=== PATIENT | female | born 2000 | race Caucasian/White ===

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

== ENCOUNTER 2021-05-31 18:54 | Emergency (ER) | payer MEDICAID, SELFPAY ==
[2021-05-31 18:56] VITALS: BP 150/89; PULSE 113; RESP 14; TEMP 36.2; O2SAT 100
[2021-05-31 19:44] LABS: Add Urine Microscopic? YES; Appearance Urine Cloudy (Clear); Bacteria Urine Trace /hpf; Bilirubin Urine Negative (Negative); Blood Urine Negative (Negative); Color Urine Yellow (Yellow); Glucose Urine UA Negative (Negative); Ketones Urine Negative (Negative); Leukocyte Esterase Ur 1+ LEU/UL (Negative); Mucus Urine Rare /lpf; Nitrate Urine Negative (Negative); Protein Urine Negative (Negative); Specific Grav Ur 1.015 (1.001-1.035); Squamous Epithelial Cell Urine Many /hpf (Few)
--- NOTE | 2021-05-31 19:52 | ED.FEMALEGU ---
HPI - Female Genitourinary General Chief complaint: Urogenital-Female Stated complaint: UTI Time Seen by Provider: 05/31/21 19:17 History of Present Illness HPI Narrative: Patient is a 20-year-old female who presents ER with concern for UTI. She had a UTI 3 weeks ago but did not finish her antibiotics. She is unsure the name of them. She reports that she started having some nausea so she stopped taking them. She then developed some gastroenteritis in the last week that finished up yesterday. She is having some suprapubic discomfort and pressure is associated with frequent urination and feeling of incomplete emptying. No dysuria. No vaginal discharge or bleeding. No fevers chills or sweats. Related Data Allergies Allergy/AdvReac Type Severity Reaction Status Date / Time No Known Allergies Allergy Verified 11/29/20 13:38 Review of Systems Gastrointestinal: Gastrointestinal: Denies abdominal pain, Reports diarrhea, Denies nausea and Denies vomiting Genitourinary: Genitourinary: Denies abnormal vaginal bleeding, Denies hematuria, Reports nocturia, Denies dysuria, Denies pelvic pain, Denies urinary incontinence and Denies vaginal discharge [facility] Past Medical History Medical History (Updated 05/31/21 @ 19:52 by Rogerio Villarreal MD) Anxiety Depression PCOS (polycystic ovarian syndrome) Social History Social History (Updated 11/29/20 @ 16:38 by Jay Garcia PA-C) Smoking status: Never smoker Exam Narrative: GENERAL: Well-appearing, well-nourished, and in no acute distress. HEAD: Normocephalic, atraumatic. ABDOMEN: Soft, nontender, nondistended. EXTREMITIES: Normal range of motion. No edema. NEURO: Alert and oriented x3. PSYCH: Normal mood and affect. Course Course Emergency Course: Informed of results. D/c home macrobid. Vital Signs Vital signs: Vital Signs Temperature 97.2 F L 05/31/21 18:56 Pulse Rate 113 H 05/31/21 18:56 Respiratory Rate 14 05/31/21 18:56 Blood Pressure 150/89 H 05/31/21 18:56 Pulse Oximetry 100 05/31/21 18:56 Temperature 97.2 F L 05/31/21 18:56 Pulse Rate 113 H 05/31/21 18:56 Respiratory Rate 14 03/10/22 18:56 Blood Pressure 150/89 H 05/31/21 18:56 Pulse Oximetry 100 05/31/21 18:56 MDM - Female Genitourinary Lab Data Labs: Lab Results 05/31/21 Range/Units 19:34 Urine Color Yellow (Yellow) Urine Appearance Cloudy H (Clear) Urine pH 8.0 (5.0-9.0) Ur Specific [place] 1.015 (1.001-1.035) Urine Protein Negative (Negative) mg/dL Urine Glucose (UA) Negative (Negative) mg/dL Urine Ketones Negative (Negative) mg/dL Ur Blood (Man) Negative (Negative) Urine Nitrate Negative (Negative) Urine Bilirubin Negative (Negative) Urine Urobilinogen 4.0 H (<2.0) mg/dL Leukocyte Esterase Rfl 1+ H (Negative) JACQUI/UL Urine RBC 3-5 H (0-2) /hpf Urine WBC 10-15 H /hpf Ur Squamous Epith Cells Many H (Few) /hpf Urine Bacteria Trace /hpf Urine Mucus Rare /lpf UCG Bedside Result Negative Reference Range: Negative Discharge Plan Discharge Clinical Impression: Urinary tract infection Patient Disposition: Home, Self-Care Condition: Stable Instructions: Urinary Tract Infection in Women (ED) Additional Instructions: Take the full course of antibiotics. Return the ER if you have fever 100.4 ?F, you cannot keep down food or water, you lose consciousness, you have additional concerns. Prescriptions: New nitrofurantoin monohyd/m-cryst [Macrobid] 100 mg capsule 100 mg PO Q12H 5 Days Qty: 10 RF: 0 No Action ibuprofen [IBU] 600 mg tablet 600 mg PO QID PRN (Reason: fever or pain) Qty: 7 RF: 0 famotidine [Pepcid] 20 mg tablet 20 mg PO BID Qty: 14 RF: 0 ondansetron 4 mg tablet,disintegrating 4 mg PO Q8H PRN (Reason: nausea and vomiting) Qty: 7 RF: 0 Follow-up/Referrals: Matthew Samuels MD [Physician]
== END 2021-05-31 20:08 | disposition home or self-care (01) ==
PROVIDERS: Emergency Provider Emergency Medicine
DX: N39.0 Urinary tract infection, site not specified (principal); E28.2 Polycystic ovarian syndrome
CPT/HCPCS: 81001; 81025; 87086; 87088; 99283

== ENCOUNTER 2021-12-10 19:40 | Emergency (ER) | payer OTHER, SELFPAY ==
--- NOTE | ~2021-12-10 | CT_ITS ---
EXAMINATION: CT abdomen pelvis w con DATE: 12/10/2021 22:56 INDICATION: rlq pain/r flank pain, n/v TECHNIQUE: Computed tomography (CT) of the abdomen and pelvis was performed with 100 mL Omnipaque-350 intravenous contrast. Automated exposure control and iterative reconstruction technique were employe d. The dose-length product was 1205.50 mGy-cm. COMPARISON: 11/29/2020. FINDINGS: Lower thorax: Unremarkable Liver: Normal. Biliary/Gallbladder: Gallbladder is partially collapsed. No bile duct dilation. Pancreas: No mass or duct dilation. Spleen: Normal. Adrenals:No mass. Kidneys: No mass, stone, or hydronephrosis. GI tract: No small or large bowel dilation. Normal appendix. Mesentery/Peritoneum: No ascites, mass, or free air. Retroperitoneum: No mass. Pelvis: Pelvic organs are within normal limits. NuvaRing in the vaginal cuff. Soft Tissues: Soft tissues and body wall unremarkable. Bones: No acute osseous finding. IMPRESSION: No acute abdominopelvic process detected. Reviewed, dictated and finalized at location K.
[2021-12-10 19:51] VITALS: BP 137/78; PULSE 113; RESP 18; TEMP 37.2; O2SAT 100
[2021-12-10 21:02] LABS: Hematocrit 40.9 % (37.0-47.0); Mean Corpuscular HGB Conc 34.2 g/dl (32-36); Mean Corpuscular Volume 87.8 fl (80-100); Mean Platelet Volume 10.6 fl (7.4-10.4); Platelet Count Result 383 k/mm3 (150-375); Red Blood Count 4.66 M/mm3 (4.2-5.4); Red Cell Distribution Width 12.7 % (11.5-14.5); White Blood Count 15.4 K/mm3 (4.5-10.0)
[2021-12-10 21:04] LABS: Appearance Urine Clear (Clear); Bilirubin Urine Negative (Negative); Blood Urine Negative (Negative); Color Urine Yellow (Yellow); Glucose Urine UA Negative (Negative); Ketones Urine Negative (Negative); Leukocyte Esterase Ur Negative LEU/UL (Negative); Nitrate Urine Negative (Negative); Protein Urine Negative (Negative); Urobilinogen Urine 0.2 mg/dL (<2.0)
[2021-12-10 21:11] LABS: Bacteria Urine Trace /hpf; Mucus Urine Rare /lpf; RBC Urine 0-2 /hpf (0-2); Squamous Epithelial Cell Urine Moderate /hpf (Few)
[2021-12-10 21:14] LABS: Alanine Aminotransferase 18 U/L (6-35); Albumin Level 4.5 g/dL (3.5-5.1); Alkaline Phosphatase 79 U/L (38-126); Anion Gap 13 mmol/L (8-16); Aspartate Amino Transferase 18 U/L (14-36); Bilirubin,Total 0.4 mg/dL (0.2-1.3); Blood Urea Nitrogen 10 mg/dL (7-17); Carbon Dioxide 25 mmol/L (22-30); Chloride 102 mmol/L (98-107); Estimated CRCL calculation 112 ml/min; Estimated Glomerular Filt Rate > 60; Glucose 121 mg/dL (65-110); Lipase 39 U/L (23-300); Potassium 3.2 mmol/L (3.4-5.0); Sodium 140 mmol/L (137-145)
[2021-12-10 21:35] LABS: Atypical Lymphocytes Present; Lymphocytes Absolute Manual 8.62 K/mm3 (1.1-4.5); Metamyelocytes Percent 2 %; Monocytes Absolute Manual 0.46 K/mm3 (0.1-0.90); Monocytes Percent Manual 3 % (3-9); Neutrophils Percent Manual 39 % (46-73); Platelet Estimate Adequate (Adequate); Total Cells Counted 100
[2021-12-10 21:58] LABS: Add Urine Microscopic? NO
--- NOTE | 2021-12-10 22:11 | ED.ABDPAIN ---
HPI - Abdominal Pain General Chief Complaint: Abdominal Pain Stated Complaint: gallbladder issues Time Seen by Provider: 12/10/21 22:01 History of Present Illness HPI narrative: Patient is a 21-year-old female here for evaluation of right lower quadrant abdominal pain, right flank pain, nausea and vomiting today. Patient states that she has a chronic cramping in her lower abdomen for the past month and a half but states that today got worse. She has not attempted any medication for her pain. She has had about 3 episodes of vomiting nonbloody/nonbilious emesis. No diarrhea, constipation, fevers or chills. No dysuria, urgency or frequency. She is being treated for a left-sided ear infection with azithromycin and states that her symptoms have improved slightly but the ear pain is present. Related Data Home Medications Medication Instructions Recorded Confirmed buspirone 10 mg tablet 10 mg PO TID 09/14/21 Allergies Allergy/AdvReac Type Severity Reaction Status Date / Time No Known Allergies Allergy Verified 12/10/21 22:19 Review of Systems Review of Systems: Gen: Denies fevers or chills Eyes: Denies eye pain or visual change ENT: Reports left ear pain. Denies congestion Respiratory: Denies shortness of breath or cough CV: denies chest pain or palpitations GI: Reports abdominal pain, nausea, vomiting. denies burning, urgency, frequency or hematuria Musculoskeletal: Denies back pain or muscle pain Neuro: Denies numbness, tingling, weakness or focal weakness Skin: Denies rash Except as documented, all other systems reviewed and negative PMFSH Past Medical History Medical History Anxiety Depression History of PCOS PCOS (polycystic ovarian syndrome) Family History Family History (Updated 09/14/21 @ 10:21 by Gunjan Ruelas MA) Mother Breast cancer Other Ovarian cancer Social History Social History (Updated 09/14/21 @ 10:21 by Gunjan Ruelas MA) Smoking status: Current some day smoker Tobacco type: e-cigarettes/vaping Alcohol intake: never Substance use: never Substance use type: does not use Gender identity (if verbalized by the patient): Female Sexual Orientation (if Verbalized by the Patient): Straight or Heterosexual Exam Narrative: APPEARANCE: Well appearing, no pain in distress, well-nourished. Head: Normocephalic and atraumatic. EYES: PERRLA/EOMI, conjunctivae clear NOSE: No nasal drainage EARS: Left TM is bulging. Right TM is clear. external ear normal in appearance THROAT: Oropharynx is clear. Mucous membranes are moist. NECK: Supple. No adenopathy, no masses. RESPIRATORY: Airway patent, respirations nonlabored. Clear to auscultation bilaterally, no rales, rhonchi, wheezing. CARDIOVASCULAR: Regular rate and rhythm without murmurs, rubs, or gallops. ABDOMINAL: Normoactive bowel sounds. Soft, nontender, nondistended. No rebound tenderness or guarding. MUSCULOSKELETAL: Extremities are warm and well-perfused. Moves all extremities well. No edema. NEURO: Normal speech. No focal neurologic deficits. SKIN: Skin is warm and dry. No rashes. PSYCHIATRIC: Normal affect/mood. Course Vital Signs Vital signs: Vital Signs Temperature 99.0 F 12/10/21 19:51 Pulse Rate 113 H 12/10/21 19:51 Respiratory Rate 18 12/10/21 19:51 Blood Pressure 137/78 12/10/21 19:51 Pulse Oximetry 100 12/10/21 19:51 Oxygen Delivery Room Air 12/10/21 19:51 Temperature 99.0 F 12/10/21 19:51 Pulse Rate 80 12/11/21 00:19 Respiratory Rate 18 12/11/21 00:19 Blood Pressure 129/59 L 12/11/21 00:19 Pulse Oximetry 100 12/11/21 00:19 Oxygen Delivery Room Air 12/10/21 19:51 MDM - Abdominal Pain MDM Narrative Medical decision making narrative: 21-year-old female here for evaluation of acute on chronic right lower quadrant abdominal pain and back pain for the past day. Here she is nontoxic-appearing,
[2021-12-10] MEDS: SODIUM CHLORIDE 0.9% IV 1,000 ML 999 ML IV CONT (22:20)
[2021-12-10] MEDS: FAMOTIDINE 20 MG/2 ML VIAL IV PUSH (22:20)
[2021-12-10] MEDS: KETOROLAC 15 MG/ML VIAL (*BKC) IV PUSH (22:20)
[2021-12-10] MEDS: ONDANSETRON INJ 4 MG/2 ML VIAL IV PUSH (22:21)
[2021-12-11 00:19] VITALS: BP 129/59; PULSE 80; RESP 18; O2SAT 100
== END 2021-12-11 00:16 | disposition home or self-care (01) ==
PROVIDERS: Emergency Medicine; Emergency Provider Emergency Medicine; PCP Nurse Practitioner Family
DX: R11.2 Nausea with vomiting, unspecified (principal); E28.2 Polycystic ovarian syndrome; F17.290 Nicotine dependence, other tobacco product, uncomplicated
CPT/HCPCS: 36415; 74177; 80053; 81003; 81025; 83690; 85025; 96361; 96374; 96375; 99284; J1885; J2405; J7030; Q9967

== ENCOUNTER 2021-12-12 09:21 | Emergency (ER) | payer OTHER, SELFPAY ==
--- NOTE | ~2021-12-12 | CT_ITS ---
EXAMINATION: CT abdomen pelvis w con DATE: 12/12/2021 10:49 INDICATION: Abdominal pain, nausea, vomiting, fever TECHNIQUE: Computed tomography (CT) of the abdomen and pelvis was performed with 100 CC Omnipaque 350 intravenous contrast. Automated exposure control and iterative reconstruction technique were employe d. Exam dose: 1246.64 mGy-cm total exam DLP. COMPARISON: 12/10/2021 CT abdomen pelvis FINDINGS: The lung bases are clear. Normal heart size. No pericardial or pleural effusion. The liver, gallbladder, bile ducts, pancreatic duct, pancreas and spleen appear normal. Normal morphology of the adrenal glands. No renal mass lesion or scarring urinary tract calculus or hydroureteronephrosis is detected. The uri nary bladder is unremarkable. Uterus and adnexal areas are normal. Normal caliber of the abdominal aorta. No intraperitoneal or retroperitoneal or pelvic mass lesion or adenopathy or ascites. Vaginal cuff device is noted. The urinary bladder, uterus and adnexal areas are unremarkable. Minimal colonic diverticulosis; no CT evidence of diverticulitis. Normal appendix. No bowel obstruction, bowel wall thickening, pneumatosis or intraperitoneal free air. Very small fat-containing umbilical hernia. IMPRESSION: Minimal colonic diverticulosis; no CT evidence of diverticulitis Normal appendix Reviewed, dictated and finalized at Location [facility]. Reviewed, dictated and finalized at location B.
[2021-12-12 09:29] VITALS: BP 141/71; PULSE 106; RESP 18; TEMP 37.1; O2SAT 100
--- NOTE | 2021-12-12 09:31 | ED.ABDPAIN ---
HPI - Abdominal Pain General Chief Complaint: Abdominal Pain Stated Complaint: n/v, abd pain Time Seen by Provider: 12/12/21 09:23 Source: RN notes reviewed History of Present Illness HPI narrative: Patient presents emergency department from home for abdominal pain. Patient states symptoms began 2 days ago. Pain is located across the upper abdomen and is described as a bandlike pressure feeling. States nothing makes the pain better or worse. States is associated with nausea and vomiting as well as a subjective fever states she has not take anything for the pain today patient states she was recently diagnosed with a left-sided ear infection she has not taken the antibiotics yet states she does have Zofran and P Protonix at home Related Data Home Medications Medication Instructions Recorded Confirmed buspirone 10 mg tablet 10 mg PO TID 09/14/21 Allergies Allergy/AdvReac Type Severity Reaction Status Date / Time No Known Allergies Allergy Verified 12/10/21 22:19 Review of Systems Review of Systems: Gen.: Denies fevers or chills ENT: Denies congestion Respiratory: Denies shortness of breath or cough CV: Denies chest pain or palpitations GI: See HPI Musculoskeletal: Denies back pain or muscle pain Neuro: Denies numbness, tingling, weakness or focal weakness Skin: Denies rash Except as documented, all other systems reviewed and negative [facility] Past Medical History Medical History Anxiety Depression History of PCOS PCOS (polycystic ovarian syndrome) Family History Family History (Updated 09/14/21 @ 10:21 by Gunjan Ruelas MA) Mother Breast cancer Other Ovarian cancer Social History Social History Smoking status: Current some day smoker Tobacco type: e-cigarettes/vaping Alcohol intake: never Substance use: never Substance use type: does not use Gender identity (if verbalized by the patient): Female Sexual Orientation (if Verbalized by the Patient): Straight or Heterosexual Exam Narrative: APPEARANCE: No acute distress, nontoxic, resting in bed HEENT: Normocephalic, atraumatic, OMM left TM is erythematous in nature the right TM is normal in appearance RESPIRATORY: No respiratory distress, clear to auscultation bilaterally with no rhonchi wheezing or rales CARDIOVASCULAR: RRR s murmur ABDOMINAL: Soft nondistended tender palpation epigastric and right upper quadrant left upper quadrant no tenderness in right lower quadrant left lower quadrant no rebound or guarding MUSCULOSKELETAl: Moves all extremities. No clubbing, cyanosis or edema. NEURO: Awake and alert. Following commands, speech normal, no focal deficits SKIN:: Warm, dry. Normal Color PSYCHIATRIC: Normal affect/mood Course Course Emergency Course: Patient states that they are feeling much better at this time. States abdominal pain has resolved. Repeat abdominal exam shows the patient's abdomen to be soft and nontender. Discussed with patient results of workup and diagnosis. Discussed need for follow-up with primary care physician, reasons to return to the emergency department in proper use of medication. Patient understands and agrees to current treatment plan. I discussed with patient need for follow-up with GI possible biliary colic in agreement at this time Vital Signs Vital signs: Vital Signs Temperature 98.7 F 12/12/21 09:29 Pulse Rate 106 H 12/12/21 09:29 Respiratory Rate 18 12/12/21 09:29 Blood Pressure 141/71 H 12/12/21 09:29 Pulse Oximetry 100 12/12/21 09:29 Oxygen Delivery Room Air 12/12/21 09:29 Temperature 98.7 F 12/12/21 09:29 Pulse Rate 71 12/12/21 12:27 Respiratory Rate 16 12/12/21 12:27 Blood Pressure 119/63 12/12/21 12:27 Pulse Oximetry 98 12/12/21 12:27 Oxygen Delivery Room Air 12/12/21 09:29 MDM - Abdominal Pain MDM Narrative Medical decision making
[2021-12-12] MEDS: KETOROLAC 30 MG/ML VIAL (*BKC) IV PUSH (09:56)
[2021-12-12] MEDS: SODIUM CHLORIDE 0.9% IV 1,000 ML 999 ML IV CONT (09:57)
[2021-12-12 10:08] LABS: Basophils Absolute Auto 0.2 K/mm3 (0.0-0.1); Basophils Percent Auto 1.4 % (0.2-1.2); Eosinophils Absolute Auto 0.1 K/mm3 (0-0.3); Eosinophils Percent Auto 1.3 % (0-4.4); Hematocrit 39.6 % (37.0-47.0); Hemoglobin 13.5 g/dL (12.0-15.0); Immature Granulocyte Absolute 0.02 K/mm3 (0.00-0.031); Immature Granulocyte Percent A 0.2 % (0-0.5); Lymphocytes Absolute Auto 4.56 K/mm3 (0.9-3.2); Lymphocytes Percent Auto 43.1 % (18.3-44.2); Mean Corpuscular HGB Conc 34.1 g/dl (32-36); Mean Platelet Volume 10.8 fl (7.4-10.4); Monocytes Absolute Auto 0.8 K/mm3 (0.1-0.6); Monocytes Percent Auto 7.7 % (2.6-8.5); Neutrophils Absolute Auto 4.9 K/mm3 (1.3-6.7); Neutrophils Percent Auto 46.3 % (45.5-73.1); Platelet Count Result 347 k/mm3 (150-375); Red Cell Distribution Width 12.6 % (11.5-14.5); White Blood Count 10.6 K/mm3 (4.5-10.0)
[2021-12-12 10:09] LABS: Appearance Urine Clear (Clear); Bilirubin Urine Negative (Negative); Color Urine Yellow (Yellow); Glucose Urine UA Negative (Negative); Ketones Urine Negative (Negative); Leukocyte Esterase Ur 1+ LEU/UL (Negative); Nitrate Urine Negative (Negative); Protein Urine Negative (Negative); Specific Grav Ur 1.015 (1.001-1.035); Urobilinogen Urine 0.2 mg/dL (<2.0)
[2021-12-12 10:20] LABS: Alanine Aminotransferase 17 U/L (6-35); Albumin Level 4.1 g/dL (3.5-5.1); Alkaline Phosphatase 82 U/L (38-126); Anion Gap 11 mmol/L (8-16); Aspartate Amino Transferase 16 U/L (14-36); Bilirubin,Total 0.3 mg/dL (0.2-1.3); Blood Urea Nitrogen 8 mg/dL (7-17); Carbon Dioxide 23 mmol/L (22-30); Chloride 106 mmol/L (98-107); Estimated CRCL calculation 111 ml/min; Estimated Glomerular Filt Rate > 60; Glucose 103 mg/dL (65-110); Lipase 57 U/L (23-300); Potassium 3.8 mmol/L (3.4-5.0); Sodium 140 mmol/L (137-145)
[2021-12-12 10:20] LABS: Bacteria Urine Trace /hpf; Mucus Urine Rare /lpf; RBC Urine 0-2 /hpf (0-2); Squamous Epithelial Cell Urine Few /hpf (Few); WBC Urine 0-3 /hpf
[2021-12-12 10:25] LABS: Add Urine Microscopic? YES; Blood Urine Trace-Intact (Negative)
[2021-12-12 12:27] VITALS: BP 119/63; PULSE 71; RESP 16; O2SAT 98
[2021-12-12] MEDS: NITROFURANTOIN MONOHYD MACROCR 100 MG CAP PO (12:52)
== END 2021-12-12 12:56 | disposition home or self-care (01) ==
PROVIDERS: Emergency Provider Emergency Medicine; PCP Nurse Practitioner Family
DX: N39.0 Urinary tract infection, site not specified (principal); R10.10 Upper abdominal pain, unspecified; F41.9 Anxiety disorder, unspecified; F32.A Depression, unspecified; E28.2 Polycystic ovarian syndrome; F17.290 Nicotine dependence, other tobacco product, uncomplicated
CPT/HCPCS: 36415; 74177; 80053; 81001; 81025; 83690; 85025; 96361; 96374; 99284; A9270; J1885; J7030; Q9967

== ENCOUNTER 2021-12-24 08:04 | Outpatient (CLI) | payer OTHER, SELFPAY ==
--- NOTE | ~2021-12-24 | NM_ITS ---
EXAMINATION: NM hepatobiliary w pharm DATE: 12/24/2021 10:16 INDICATION: Right upper quadrant abdominal pain. Nausea and vomiting. COMPARISON: Ultrasound 12/24/2021, CT abdomen and pelvis 12/12/2021 TECHNIQUE: 5.0 mCi Tc-99m mebrofenin (Choletec) was administered intravenously. Scintigraphic images of the abdomen were obtained for one hour. Then, 2.1 mcg sincalide (Kinevac) IV was administered, an d imaging was continued for 30 minutes. FINDINGS: There is normal clearance of radiotracer from the blood pool. There is homogeneous tracer u ptake by the liver. Activity progresses to the bowel and gallbladder. Gallbladder ejection fraction (GBEF) was 59%. Note that most patients with gallbladder dysfunction have GBEF < 35%, which overlaps with the broad normal range of 10-90%. IMPRESSION: 1. Normal hepatobiliary scintigraphy. Reviewed, dictated and finalized at location B.
--- NOTE | ~2021-12-24 | US_ITS ---
US abdomen complete EXAMINATION: US Abdomen Complete INDICATION: Right upper quadrant pain PROCEDURE: Realtime High Resolution abdomen ultrasound. COMPARISON: No prior studies for comparison FINDINGS: There is mild gallbladder wall thickening. No gallstones or pericholecystic fluid. Common bile duct measures 4 mm. Liver echotexture is increased, consistent with fatty infiltration.. Pancreas within normal limits. Pancreatic tail is obscured by bowel gas. Spleen is unremarkeable. Renal echotexture is within norm al limits bilaterally without hydronephrosis, contour deforming mass or renal stone. Right kidney cathy sures 11.9 cm. Left kidney measures 10.9 cm. Visualized aspects of the aorta and IVC are within normal limits. Portal vein is patent. No sonograph ic Hinton's sign indicated by the technologist. IMPRESSION: 1: Hepatic steatosis. 2: Mild gallbladder wall thickening. This could indicate interstitial edema, chronic liver disease o r chronic cholecystitis. Reviewed, dictated and finalized at location A. IMPRESSION: 1: Hepatic steatosis. 2: Mild gallbladder wall thickening. This could indicate interstitial edema, c hronic liver disease or chronic cholecystitis.
== END 2021-12-24 08:05 | disposition home or self-care (01) ==
PROVIDERS: PCP Nurse Practitioner Family; Visit Provider Nurse Practitioner Family
DX: R10.11 Right upper quadrant pain (principal); R11.2 Nausea with vomiting, unspecified; K76.0 Fatty (change of) liver, not elsewhere classified
CPT/HCPCS: 76700; 78227; A9537; J2805

== ENCOUNTER 2022-01-21 02:02 | Day surgery (SDC) | payer OTHER, SELFPAY ==
[2022-01-18 12:01] VITALS: BMI 42.0
--- NOTE | 2022-01-18 12:05 | PC.NURSE ---
Report to the Outpatient Waiting Room, entrance under the green pavilion located off [facility], at time 0600 on date 01/21/22. Planned Procedure Time: 0730. Time changes happen often and if your time is changed the preop area will call you the afternoon before. - You and your visitor will be asked to self-screen and do not enter if you have any COVID symptoms. - We encourage only one visitor and NO visitors under age 16 are allowed at this time. Your visitor will receive communication by the phone number that is given day of service. - The patient visitor is requested to social distance or may leave the building when not with patient due to restrictions. - A mask is OPTIONAL within the hospital. Patients may have clear liquids (water, carbonated beverages, clear teas, apple juice) until 3 hours prior to surgery with a maximum of 20 ounces. - No food from midnight until time of surgery Take the following medications with a SIP of water the morning of surgery: N/A Medications to discontinue per physician: N/A Date to take last dose: N/A Please no make-up, nail belarusian, hairspray, perfume, deodorant, or body powder the day of surgery. No jewelry (including any body piercings) or valuables the day of surgery, leave them at home. Please take a shower or bath the night before, or the morning of, surgery with an antibacterial soap (HIBICLENS). Wear comfortable, loose fitting clothing. - Jewelry must be removed prior to entering the operating room. Rings and piercings that are not removed may be cut off. - The hospital will not accept responsibility for valuables. - Please leave all valuables, including medications, at home the day of surgery. If you are going home after surgery, a licensed commercial trailer truck driver must drive you home. - NO public transportation without another adult. - We recommend that an adult stay with you for 24 hours following discharge. - We also recommend that you do not drive, make important decision, drink alcoholic beverages, or take any drugs that were not prescribed by your health care provider for at least 24 hours after your discharge time. Follow any additional instructions given to you from your surgeon. If you or anyone in your household have experienced Covid symptoms in the past week, please notify your surgeon or the nurse liaison at the phone number below for possible testing. Telephone instructions given to YOHAN GONZALES and asked if any additional questions and then verbalized understanding. Patient advised to call surgeon office or pre surgery nurse liaison [phone] if any additional questions.
[2022-01-21] VITALS (8 sets, daily range): BP systolic 125–162; BP diastolic 70–93; PULSE 83–109; RESP 18–34; TEMP 36.1–36.9; O2SAT 97–100
--- NOTE | 2022-01-21 07:03 | P.PNAN_ITS ---
Anes - Initial Pre Proc Eval Procedure: Operation Date: 01/21/22 07:30 Proposed Procedures p Laparoscopic Cholecystectomy - Giselle Pedro MD Date/Time: 01/21/22 07:03 Surgeon: Giselle Pedro MD Pre Op Diagnosis: chronic cholecystitis Patient Data Age: 21 Gender: F Height: 1.57 m Weight: 104.33 kg Allergies Allergy/AdvReac Type Severity Reaction Status Date / Time No Known Allergies Allergy Verified 01/18/22 12:00 Home Medications Medication Instructions Recorded Confirmed Type etonogestrel 0.12 mg-ethinyl 1 vag ring vaginal .see comment #3 09/14/21 01/18/22 Rx estradiol 0.015 mg/24 hr vaginal ea ring (NuvaRing) Patient hx anesthesia problems: none and other (motion sickness) Family hx anesthesia problems: none Results Review: All pre-operative results and documents have been reviewed as part of the pre- operative evaluation. [facility] Past Medical History Medical History Anxiety Depression Hepatic steatosis History of PCOS Nausea and vomiting Obese PCOS (polycystic ovarian syndrome) Right upper quadrant pain Family History Family History Mother Breast cancer Other Ovarian cancer Social History Social History Smoking status: Current every day smoker Tobacco type: e-cigarettes/vaping Alcohol intake: never Substance use: never Substance use type: does not use Living arrangements: with friend(s) Additional living arrangements comments: WITH BOYFRIEND Gender identity (if verbalized by the patient): Female Sexual Orientation (if Verbalized by the Patient): Straight or Heterosexual Anes - Eval Final PreProcedure Day of Procedure 01/21/22 07:03 Patient weight: morbidly obese Lungs: clear to auscultation Airway: Mallampati scale class II Neurological: alert and oriented Last oral intake: >/= 8 hours ASA classification: III Emergent: no Anesthetic plan: proceed Anesthesia type and monitoring: general ETT and standard monitoring Results Review: All pre-operative results and documents have been reviewed as part of the pre- operative evaluation. Informed Consent: The patient's anesthetic plan and its attendant risks and benefits were discussed with the patient/family/POA. Questions were solicited and answers provided to the satisfaction of the patient/family/POA.
[2022-01-21] MEDS: SCOPOLAMINE 1.5 MG PATCH TRANSDERM (07:14)
[2022-01-21] MEDS: ACETAMINOPHEN 500 MG TABLET 1000 MG PO (07:15)
[2022-01-21] MEDS: KETOROLAC 15 MG/ML VIAL (*BKC) IV PUSH (07:16)
--- NOTE | 2022-01-21 07:21 | WPDHPUPDATE1 ---
History and Physical Update Update Date/Time: 01/21/22 07:21 History and Physical has been reviewed, including an updated exam of the patient. There are NO changes in the patient's condition. Risks, benefits, and alternatives have been discussed and questions answered. Patient agrees to proceed with procedure.
[2022-01-21 07:24] LABS: Amylase 62 U/L (30-110)
[2022-01-21] MEDS: LACTATED RINGERS 1,000 ML 30 ML IV CONT ×2 (07:28→08:59)
[2022-01-21] MEDS: BUPIVACAINE/EPINEPHRINE 0.25% 50 ML VIAL 30 ML INFILTRATE (07:30)
[2022-01-21] MEDS: ceFAZolin 2 GM/D5W 50 ML 2 GM/50 ML BAG IVPB (07:30)
--- NOTE | 2022-01-21 08:28 | W.PM.PROC2 ---
Procedure Note - Detailed Date of Procedure 01/21/22 Pre-op Diagnosis chronic cholecystitis Post-op Diagnosis Same Procedure Performed Laparoscopic cholecystectomy Surgeon Giselle Pedro MD Anesthesia General Indications 21-year-old female presented to the office complaining of postprandial right upper quadrant abdominal pain associated with nausea and vomiting. Workup including imaging significant for chronic cholecystitis. Findings chronic cholecystitis Description of Procedure The patient was taken to the operating room placed in the supine position. After adequate induction of general anesthesia, the patient was prepped and draped in normal sterile fashion. A time-out was then performed to verify the patient's identity as well as the procedure being performed. I then made a 5 mm incision in the supraumbilical region. Through this, a Veress needle was placed into the peritoneal cavity and CO2 gas was then insufflated. After adequate pneumoperitoneum was achieved, the Veress needle was removed and a 5 mm optiview trocar was placed through this incision under direct visualization. I then placed the laparoscope through this trocar site and under direct visualization placed a further 12 mm subxiphoid port as well as 2 additional 5 mm ports in the right upper abdomen. The gallbladder was then identified and was noted to be moderately inflamed and distended. I was able to place a grasper at the dome of the gallbladder and this was retracted anterior and cephalad up over the liver. A 2nd retractor was then placed at the infundibulum and retracted laterally, this allowed visualization of the triangle of Calot. I then was able to visualize the cystic duct in its entirety from its proximal insertion into the gallbladder, to its distal junction with the common hepatic/common bile duct junction. At this point, I carefully skeletonized the proximal cystic duct with the [place] dissector. I then clipped and transected the proximal cystic duct. Next I visualized the cystic artery. Again the artery was skeletonized, clipped, and transected. I then used the Bovie cautery to take down the peritoneal attachments of the gallbladder off the liver bed. Once the gallbladder specimen was completely detached, an endo-pouch was placed through the 12 mm port site. I then placed the gallbladder specimen into the Endo pouch and removed the endo-pouch from the 12 mm port site. The specimen will now be sent to pathology for further review. I then copiously irrigated the right upper quadrant. Hemostasis was noted in the liver bed, the clips were noted to be in good position on both the cystic duct stump and the cystic artery stump. No other pathology was noted in the right upper quadrant. I then moved the laparoscope to the subxiphoid port. No iatrogenic injury or other pathology was noted in the lower abdomen. I then closed the 12 mm trocar site under direct visualization using the Lincoln cone and 0 Vicryl suture. At this point, the abdomen was desufflated and all ports removed. All port sites were then closed with 4.O Monocryl subcuticular sutures. Dermabond was placed on each incision. The patient tolerated the procedure well, was extubated in the operating room postoperative and will be transferred to the recovery room in stable condition Estimated Blood Loss 5 Drains No Packing No Pathology Yes Complications No immediate complications Condition Stable Disposition PACU [facility] Billing Surgery - Charge Forward: Surgery Billing
[2022-01-21] MEDS: fentaNYL CITRATE INJ (*CRX) 100 MCG/2 ML VIAL 25 MCG IV PUSH ×4 (08:33→09:07)
[2022-01-21] MEDS: oxyCODONE HCL (*CRX) 5 MG TAB IR PO (09:41)
== END 2022-01-21 10:27 | disposition home or self-care (01) ==
PROVIDERS: Visit Provider Surgery
PROC: 0FT44ZZ Resection of Gallbladder, Percutaneous Endoscopic Approach (ICD-10-PCS; CPT 47562; principal; 2022-01-21 07:30)
DX: K81.1 Chronic cholecystitis (principal); F17.290 Nicotine dependence, other tobacco product, uncomplicated; E66.01 Morbid (severe) obesity due to excess calories; Z68.41 Body mass index [BMI] 40.0-44.9, adult
CPT/HCPCS: 47562; 36415; 82150; 88304; A9270; J0690; J1100; J1200; J1885; J2250; J2405; J2704; J3010; J7030; J7120

== ENCOUNTER 2022-01-26 14:42 | Emergency (ER) | payer OTHER, SELFPAY ==
--- NOTE | ~2022-01-26 | XR_ITS ---
EXAMINATION: XR chest 2V Exam Date/Time: 01/26/2022 15:04 CDT HISTORY: cough Comparison: None available. RESULT: Lines, tubes, and devices: Cholecystectomy clips. Lungs and pleura: Clear. Cardiomediastinal silhouette: Stable. Other: No acute osseous or upper abdominal finding. IMPRESSION: No acute cardiopulmonary process. Reviewed, dictated and finalized at location K.
--- NOTE | ~2022-01-26 | CT_ITS ---
EXAMINATION: CTA chest PE protocol DATE: 01/26/2022 17:05 INDICATION: dyspnea post op TECHNIQUE: Computed tomography angiography (CTA) of the chest was performed with 100 mL Omnipaque-350 intravenous contrast timed to evaluate the pulmonary arteries. Coronal maximum intensity projection 3D-reconstructions were created by the technologist. The dose-length product (DLP) was 767.90 mGy-cm. Automated exposure control and iterative reconstruction technique were employed. COMPARISON: X-ray chest, same date. FINDINGS: Lung parenchyma and airways: Clear. Pleura: Unremarkable. Thoracic inlet, axillae and chest wall: Unremarkable. Thoracic aorta: Normal. Mediastinum: Normal. Heart and pericardium: Normal. Coronary artery calcifications: Absent. Upper abdomen: No significant finding. Bones: No acute osseous finding. Pulmonary arteries: Study quality: Slightly limited by beam hardening and motion but overall adequate . No pulmonary emboli detected. IMPRESSION: No CT evidence of acute pulmonary embolus. Reviewed, dictated and finalized at location K.
[2022-01-26 14:43] VITALS: BP 147/82; PULSE 107; RESP 16; TEMP 36.4; O2SAT 100
--- NOTE | 2022-01-26 15:09 | ECG_ITS ---
Measurements Intervals Gibson Rate: 85 P: 21 VA: 121 QRS: 9 QRSD: 85 T: 8 QT: 349 QTc: 417 Interpretive Statements SINUS RHYTHM DELAYED PRECORDIAL R/S TRANSITION BORDERLINE T WAVE ABNORMALITY- ANT/INF LEADS BASELINE ARTIFACT- I, II, V2 BORDERLINE ECG NO PREVIOUS ECG AVAILABLE FOR COMPARISON Electronically Signed On 01-26-2022 20:09:46 CDT by Joshua Reis D.O.
--- NOTE | 2022-01-26 15:09 | ED.GENADULT ---
HPI - General Adult General Chief complaint: Recheck/Abnormal Lab/Rx Stated complaint: coughing Time Seen by Provider: 01/26/22 14:48 Source: RN notes reviewed History of Present Illness HPI narrative: Patient presents emergency department from home for cough. Patient states she has had a cough for the past 5 days states that the cough has been nonproductive. States has been associated with a feeling of of hot and cold but she has not had a measured temperature. States at times she does have some midsternal chest tightness that happens in the morning when she wakes up and then is relieved after she gets up states that she is also been having some cramping throughout her abdomen. As well as in her lower back patient denies any rhinorrhea she states that she just had her gallbladder removed by Dr. Pedro 5 days ago states she has been using her incentive spirometer Related Data Allergies Allergy/AdvReac Type Severity Reaction Status Date / Time No Known Allergies Allergy Verified 01/21/22 07:42 Review of Systems Review of Systems: Gen.: Subjective feelings of hot and cold ENT: Denies congestion Respiratory: reports shortness of breath and cough CV: Denies chest pain or palpitations GI: Reports abdominal pain denies nausea vomiting or diarrhea Musculoskeletal: Denies back pain or muscle pain Neuro: Denies numbness, tingling, weakness or focal weakness Skin: Denies rash Except as documented, all other systems reviewed and negative [facility] Past Medical History Medical History Anxiety Depression Hepatic steatosis History of PCOS Nausea and vomiting Obese PCOS (polycystic ovarian syndrome) Right upper quadrant pain Family History Family History Mother Breast cancer Other Ovarian cancer Social History Social History Smoking status: Current every day smoker Tobacco type: e-cigarettes/vaping Alcohol intake: never Substance use: never Substance use type: does not use Additional living arrangements comments: WITH BOYFRIEND Gender identity (if verbalized by the patient): Female Sexual Orientation (if Verbalized by the Patient): Straight or Heterosexual Exam Narrative: APPEARANCE: No acute distress, nontoxic, resting in bed EYES: EOMI HEENT: Normocephalic, atraumatic, OMM RESPIRATORY: No respiratory distress Clear to auscultation bilaterally with no rhonchi wheezing or rales. CARDIOVASCULAR: Regular rate and rhythm without murmurs rubs or gallops. ABDOMINAL: Soft nondistended mild diffuse tender to palpation no rebound or guarding, no surgical abdomen present, patient with surgical scars present with no signs of infection MUSCULOSKELETAl: Moves all extremities. No clubbing, cyanosis or edema. NEURO: Awake and alert. Following commands, speech normal, no focal deficits SKIN:: Warm, dry. No rashes lesions or abrasions PSYCHIATRIC: Normal affect/mood, Course Course Emergency Course: Discussed with Dr. Rodriguez presentation work-up agrees with plan for discharge Discussed with patient results of workup and diagnosis. Discussed need for follow-up with primary care, proper use of medication, and reasons to return to the emergency department. Patient understands and agrees to current treatment plan Vital Signs Vital signs: Vital Signs Temperature 97.5 F L 01/26/22 14:43 Pulse Rate 107 H 01/26/22 14:43 Respiratory Rate 16 01/26/22 14:43 Blood Pressure 147/82 H 01/26/22 14:43 Pulse Oximetry 100 01/26/22 14:43 Temperature 97.5 F L 01/26/22 14:43 Pulse Rate 107 H 01/26/22 14:43 Respiratory Rate 16 01/26/22 14:43 Blood Pressure 147/82 H 01/26/22 14:43 Pulse Oximetry 100 01/26/22 14:43 Medical Decision Making [facility] Narrative Medical decision making narrative: Patient presents with feelings of dyspnea feeling hot
[2022-01-26 15:43] LABS: Basophils Absolute Auto 0.1 K/mm3 (0.0-0.1); Basophils Percent Auto 0.9 % (0.2-1.2); Eosinophils Absolute Auto 0.2 K/mm3 (0-0.3); Eosinophils Percent Auto 1.6 % (0-4.4); Hematocrit 37.1 % (37.0-47.0); Hemoglobin 12.5 g/dL (12.0-15.0); Immature Granulocyte Absolute 0.04 K/mm3 (0.00-0.031); Immature Granulocyte Percent A 0.3 % (0-0.5); Lymphocytes Absolute Auto 3.93 K/mm3 (0.9-3.2); Lymphocytes Percent Auto 33.4 % (18.3-44.2); Mean Corpuscular HGB Conc 33.7 g/dl (32-36); Mean Corpuscular Hemoglobin 29.7 pg (26-34); Mean Corpuscular Volume 88.1 fl (80-100); Mean Platelet Volume 10.5 fl (7.4-10.4); Monocytes Absolute Auto 0.5 K/mm3 (0.1-0.6); Monocytes Percent Auto 4.6 % (2.6-8.5); Neutrophils Percent Auto 59.2 % (45.5-73.1); Platelet Count Result 343 k/mm3 (150-375); Red Blood Count 4.21 M/mm3 (4.2-5.4); Red Cell Distribution Width 12.4 % (11.5-14.5); White Blood Count 11.8 K/mm3 (4.5-10.0)
[2022-01-26 15:46] LABS: Mucus Urine Moderate /lpf; Squamous Epithelial Cell Urine Many /hpf (Few); WBC Urine 16-20 /hpf
[2022-01-26 15:47] LABS: Add Urine Microscopic? YES; Appearance Urine Slightly Cloudy (Clear); Bilirubin Urine Negative (Negative); Blood Urine 3+ (Negative); Color Urine Yellow (Yellow); Glucose Urine UA Negative (Negative); Ketones Urine Trace mg/dL (Negative); Leukocyte Esterase Ur 1+ LEU/UL (Negative); Nitrate Urine Negative (Negative); Protein Urine Negative (Negative); Specific Grav Ur 1.025 (1.001-1.035); Urobilinogen Urine 0.2 mg/dL (<2.0)
[2022-01-26 15:53] LABS: Alanine Aminotransferase 16 U/L (6-35); Albumin Level 3.9 g/dL (3.5-5.1); Alkaline Phosphatase 95 U/L (38-126); Anion Gap 11 mmol/L (8-16); Aspartate Amino Transferase 15 U/L (14-36); Bilirubin,Total 0.4 mg/dL (0.2-1.3); Blood Urea Nitrogen 6 mg/dL (7-17); Calcium 8.7 mg/dL (8.4-10.2); Carbon Dioxide 22 mmol/L (22-30); Chloride 105 mmol/L (98-107); Estimated CRCL calculation 110 ml/min; Estimated Glomerular Filt Rate > 60; Glucose 160 mg/dL (65-110); Lipase 53 U/L (23-300); Potassium 3.8 mmol/L (3.4-5.0); Sodium 138 mmol/L (137-145)
[2022-01-26 16:04] LABS: Troponin I < 0.012 ng/mL (0.000-0.034)
[2022-01-26 16:19] LABS: Influenza A QL RT-PCR Negative (Negative); Influenza B QL RT-PCR Negative (Negative); SARS-CoV-2 RNA PCR Negative
[2022-01-26 16:43] LABS: Troponin I < 0.012 ng/mL (0.000-0.034)
[2022-01-26] MEDS: SODIUM CHLORIDE 0.9% IV 1,000 ML 999 ML IV CONT (16:44)
[2022-01-26 18:34] VITALS: BP 128/76; PULSE 75; TEMP 37.3; O2SAT 99
[2022-01-26] MEDS: CEPHALEXIN 500 MG CAPSULE PO (18:49)
== END 2022-01-26 18:54 | disposition home or self-care (01) ==
PROVIDERS: Emergency Provider Emergency Medicine
DX: N39.0 Urinary tract infection, site not specified (principal); R06.00 Dyspnea, unspecified; F17.209 Nicotine dependence, unspecified, with unspecified nicotine-induced disorders; Z20.822 Contact with and (suspected) exposure to COVID-19
CPT/HCPCS: 36415; 71046; 71275; 80053; 81001; 81025; 83690; 84484; 85025; 87086; 87088; 87636; 93005; 96360; 99284; A9270; J7030; Q9967

== ENCOUNTER 2022-05-07 09:41 | Emergency (ER) | payer OTHER, SELFPAY ==
[2022-05-07] VITALS (8 sets, daily range): BP systolic 103–150; BP diastolic 66–112; PULSE 81–124; RESP 18; TEMP 36.3–36.6; O2SAT 99–100
--- NOTE | ~2022-05-07 | CT_ITS ---
EXAMINATION: CT abdomen pelvis w con INDICATION: Abdominal pain and vomiting TECHNIQUE: Computed tomographic images of the abdomen and pelvis were obtained after the administrati on of 100 cc of Omnipaque 350 intravenous contrast. The dose-length product (DLP) was 1227.89 mGy-cm. Automated exposure control and iterative reconstruction technique were employed. COMPARISON: 12/12/2021 FINDINGS: The lung bases are clear. The heart size is normal. The liver is diffusely low in attenuati on when compared with the spleen, consistent with hepatic steatosis. The gallbladder is surgically ab sent. The spleen, pancreas, and adrenal glands are normal. The kidneys are unremarkable. No pathologi jhon enlarged abdominal or pelvic lymph nodes are identified. No free intraperitoneal gas or evidenc e of bowel obstruction. There is liquid stool in the colon to the level of the rectum, consistent wit h diarrhea. The appendix is normal IMPRESSION: 1. Liquid stool throughout the colon, consistent with diarrhea, likely enteritis. Reviewed, dictated and finalized at location L. [employer] IMPRESSION: 1. Liquid stool throughout the colon, consistent with diarrhea, likely enteriti s.
[2022-05-07 10:04] LABS: Basophils Absolute Auto 0.1 K/mm3 (0.0-0.1); Basophils Percent Auto 0.6 % (0.2-1.2); Eosinophils Absolute Auto 0.2 K/mm3 (0-0.3); Eosinophils Percent Auto 1.3 % (0-4.4); Hematocrit 42.3 % (37.0-47.0); Hemoglobin 14.7 g/dL (12.0-15.0); Immature Granulocyte Absolute 0.09 K/mm3 (0.00-0.031); Immature Granulocyte Percent A 0.5 % (0-0.5); Lymphocytes Percent Auto 12.8 % (18.3-44.2); Mean Corpuscular HGB Conc 34.8 g/dl (32-36); Mean Corpuscular Hemoglobin 29.8 pg (26-34); Mean Corpuscular Volume 85.6 fl (80-100); Mean Platelet Volume 10.7 fl (7.4-10.4); Monocytes Absolute Auto 1.3 K/mm3 (0.1-0.6); Monocytes Percent Auto 7.2 % (2.6-8.5); Neutrophils Absolute Auto 13.9 K/mm3 (1.3-6.7); Neutrophils Percent Auto 77.6 % (45.5-73.1); Platelet Count Result 366 k/mm3 (150-375); Red Blood Count 4.94 M/mm3 (4.2-5.4); Red Cell Distribution Width 13.3 % (11.5-14.5); White Blood Count 17.9 K/mm3 (4.5-10.0)
[2022-05-07 10:16] LABS: Alanine Aminotransferase 24 U/L (6-35); Albumin Level 4.4 g/dL (3.5-5.1); Alkaline Phosphatase 115 U/L (38-126); Anion Gap 9 mmol/L (8-16); Aspartate Amino Transferase 23 U/L (14-36); Bilirubin,Total 0.7 mg/dL (0.2-1.3); Blood Urea Nitrogen 10 mg/dL (7-17); Carbon Dioxide 22 mmol/L (22-30); Chloride 104 mmol/L (98-107); Estimated CRCL calculation 125 ml/min; Estimated Glomerular Filt Rate > 60; Glucose 144 mg/dL (65-110); Lipase 38 U/L (23-300); Potassium 4.2 mmol/L (3.4-5.0); Sodium 135 mmol/L (137-145)
[2022-05-07] MEDS: SODIUM CHLORIDE 0.9% IV 1,000 ML 999 ML IV CONT ×2 (11:51→14:30)
[2022-05-07] MEDS: ONDANSETRON INJ 4 MG/2 ML VIAL IV PUSH (11:53)
[2022-05-07] MEDS: FAMOTIDINE 20 MG/2 ML VIAL IV PUSH (11:53)
[2022-05-07 12:13] LABS: Appearance Urine Turbid (Clear); Bilirubin Urine 2+ (Negative); Blood Urine Negative (Negative); Color Urine Yellow (Yellow); Glucose Urine UA Negative (Negative); Ketones Urine 2+ mg/dL (Negative); Leukocyte Esterase Ur Trace LEU/UL (Negative); Nitrate Urine Negative (Negative); Protein Urine 1+ mg/dL (Negative); Specific Grav Ur >= 1.030 (1.001-1.035); Urobilinogen Urine 0.2 mg/dL (<2.0); pH Urine 5.5 (5.0-9.0)
[2022-05-07 12:18] LABS: Mucus Urine Heavy /lpf; RBC Urine 0-2 /hpf (0-2); Squamous Epithelial Cell Urine Many /hpf (Few)
[2022-05-07 12:29] LABS: Add Urine Microscopic? YES
--- NOTE | 2022-05-07 14:33 | ED.NAVMDI ---
HPI - Nausea/Vomiting/Diarrhea General Chief complaint: Nausea/Vomiting/Diarrhea Stated complaint: N/V since midnight Time Seen by Provider: 05/07/22 11:36 Source: patient Mode of arrival: ambulatory Limitations: no limitations History of Present Illness HPI Narrative: This is a 21-year-old female that presents to the emergency department for abdominal pain, nausea and vomiting. Ongoing since earlier this morning. Reports achy lower abdominal pain. No other associated symptoms. Denies fever, diarrhea, dysuria, or hematuria. Related Data Allergies Allergy/AdvReac Type Severity Reaction Status Date / Time No Known Allergies Allergy Verified 02/06/22 10:08 Review of Systems Review of Systems: CONSTITUTIONAL: Denies fever GASTROINTESTINAL: Reports abdominal pain, nausea, vomiting. Denies diarrhea. GENITOURINARY: Denies dysuria or hematuria. All systems reviewed & are unremarkable except as noted in HPI and below PMFSH Past Medical History Medical History Anxiety Depression Hepatic steatosis History of PCOS Nausea and vomiting Obese PCOS (polycystic ovarian syndrome) Right upper quadrant pain Surgical History Surgical History Hx laparoscopic cholecystectomy 01/21/22 Family History Family History Mother Breast cancer Other Ovarian cancer Social History Social History Smoking status: Current every day smoker Tobacco type: e-cigarettes/vaping Alcohol intake: never Substance use: never Substance use type: does not use Living arrangements: with friend(s) Additional living arrangements comments: WITH BOYFRIEND Occupation/Education: occupation Gender identity (if verbalized by the patient): Female Sexual Orientation (if Verbalized by the Patient): Straight or Heterosexual Exam Narrative: GENERAL: Well-appearing, well-nourished, and in no acute distress. HEAD: Normocephalic, atraumatic. EYES: EOMI. CHEST: Clear to auscultation. No respiratory distress. No wheezes rales or rhonchi HEART: Regular rate and rhythm. No murmur heard. Normal peripheral pulses. ABDOMEN: Soft, nondistended, normal active bowel sounds. Mild tenderness to palpation throughout the lower abdomen, without guarding EXTREMITIES: Normal range of motion. No edema. SKIN: Warm, dry, no rash. NEURO: No focal deficits. Alert and oriented x3. PSYCH: Normal mood and affect Course Course Emergency Course: Patient updated on work-up. Reports relief with IV fluids and Zofran. Would like to try some Jello Vital Signs Vital signs: Vital Signs Temperature 97.4 F L 05/07/22 09:49 Pulse Rate 124 H 05/07/22 09:49 Respiratory Rate 18 05/07/22 09:49 Blood Pressure 141/98 H 05/07/22 09:49 Pulse Oximetry 100 05/07/22 09:49 Oxygen Delivery Room Air 05/07/22 09:49 Temperature 97.8 F 05/07/22 12:03 Pulse Rate 122 H 05/07/22 13:38 Respiratory Rate 18 05/07/22 12:03 Blood Pressure 136/112 H 05/07/22 13:38 Pulse Oximetry 99 05/07/22 12:03 Oxygen Delivery Room Air 05/07/22 09:49 MDM - Nausea/Vomiting/Diarrhea MDM Narrative Medical decision making narrative: Patient presents to the emergency department for low abdominal pain, nausea and vomiting. Ongoing since earlier this morning. She is afebrile and nontoxic-appearing. Tachycardic upon arrival, this normalized with IV fluid administration. CBC with leukocytosis to 17.9. Metabolic panel and lipase without concerning findings. UA with 10-15 white blood cells, but also many squamous epithelial cells. Likely a contaminated catch. She has no urinary symptoms. This will be sent for culture. Bedside test is negative. CT scan of the abdomen and pelvis shows findings consistent with enteritis. Patient updated on work-up. Re
== END 2022-05-07 15:33 | disposition home or self-care (01) ==
PROVIDERS: Emergency Provider Physician Assistant
DX: E86.0 Dehydration (principal); R11.2 Nausea with vomiting, unspecified; E28.2 Polycystic ovarian syndrome; F17.290 Nicotine dependence, other tobacco product, uncomplicated
CPT/HCPCS: 36415; 74177; 80053; 81001; 81025; 83690; 85025; 87086; 87088; 96361; 96365; 96375; 99284; J0131; J2405; J7030; Q9967

== ENCOUNTER 2022-06-19 00:22 | Day surgery (SDC) | payer OTHER, SELFPAY ==
[2022-06-13 16:06] VITALS: BMI 43.9
[2022-06-19] MEDS: LACTATED RINGERS 1,000 ML 150 ML IV CONT (09:34)
--- NOTE | 2022-06-19 09:37 | SUR.PREOP ---
Patient ate crackers at 0145 this AM. Drank 1 glass of apple juice at 0400-Dr. Ewing aware.
[2022-06-19 09:38] VITALS: BP 137/84; PULSE 125; RESP 17; TEMP 36.4; O2SAT 99
--- NOTE | 2022-06-19 09:42 | WPDANESEPPF ---
Anes - Initial Pre Proc Eval Procedure: Operation Date: 06/19/22 10:45 Proposed Procedures p Esophagogastroduodenoscopy - Lisandro Moreau MD Date/Time: 06/19/22 09:42 Surgeon: Lisandro Moreau MD Pre Op Diagnosis: N&V, RUQP Patient Data Age: 21 Gender: F Height: 1.57 m Weight: 106 kg Last Vital Signs Temp 97.6 F 06/19/22 09:38 Pulse 125 H 06/19/22 09:38 Resp 17 06/19/22 09:38 BP 137/84 06/19/22 09:38 Pulse Ox 99 06/19/22 09:38 O2 Del Method Room Air 06/19/22 09:38 Allergies Allergy/AdvReac Type Severity Reaction Status Date / Time No Known Allergies Allergy Verified 06/19/22 09:35 Home Medications Medication Instructions Recorded Confirmed Type etonogestrel 0.12 mg-ethinyl 1 vag ring vaginal .see comment #3 02/04/22 06/19/22 Rx estradiol 0.015 mg/24 hr vaginal ea ring (NuvaRing) ondansetron 4 mg disintegrating 4 mg PO Q8H PRN nausea and 05/07/22 06/19/22 Rx tablet vomiting #14 tabs linaclotide 72 mcg capsule 72 mcg PO DAILY 1 month #30 caps 05/14/22 06/19/22 Rx (Linzess) lansoprazole 15 mg capsule,delayed 15 mg PO DAILY 1 month #30 caps 05/20/22 06/19/22 Rx release (Prevacid 24Hr) Patient hx anesthesia problems: none Family hx anesthesia problems: none Results Review: All pre-operative results and documents have been reviewed as part of the pre-operative evaluation. [facility] Past Medical History Medical History (Updated 05/20/22 @ 10:18 by Sarina Geiger DO) Alternating constipation and diarrhea Anxiety Depression Hepatic steatosis History of PCOS Nausea and vomiting Obese PCOS (polycystic ovarian syndrome) Right upper quadrant pain Surgical History Surgical History Hx laparoscopic cholecystectomy 01/21/22 Family History Family History Mother Breast cancer Other Ovarian cancer Social History Social History (Updated 05/20/22 @ 09:39 by Paris Rascon [facility]) Smoking status: Current every day smoker Tobacco type: e-cigarettes/vaping Alcohol intake: never Substance use: never Substance use type: does not use Lack of Transportation: No Lack of Food: Never True Current Housing: I Have Housing Concerned About Future Housing: No Difficulty Paying Gas/Electric Bills: No Difficulty Paying for Meds: No Currently Unemployed: YES Education: High School Diploma/GED Difficulty w/ Childcare or Family Care: No Living arrangements: with family Additional living arrangements comments: WITH BOYFRIEND Occupation/Education: occupation Gender identity (if verbalized by the patient): Female Sexual Orientation (if Verbalized by the Patient): Straight or Heterosexual Spiritual care concerns: No Anes - Eval Final PreProcedure Day of Procedure 06/19/22 09:42 Patient weight: morbidly obese Heart: regular rate and rhythm Lungs: clear to auscultation Airway: Mallampati scale class II Neurological: alert and oriented Last oral intake: >/= 8 hours ASA classification: III Emergent: no Anesthetic plan: proceed Anesthesia type and monitoring: general GIVS and standard monitoring Results Review: All pre-operative results and documents have been reviewed as part of the pre-operative evaluation. Informed Consent: The patient's anesthetic plan and its attendant risks and benefits were discussed with the patient/family/POA. Questions were solicited and answers provided to the satisfaction of the patient/family/POA.
--- NOTE | 2022-06-19 09:45 | PM.HPGS ---
History of Present Illness History of Present Illness Consent: Risks, benefits, and alternatives have been discussed and questions answered. Patient agrees to proceed with procedure. Chief complaint: N&V, RUQP Narrative: Raisa Gallagher is a 21 year old female with nausea, abdominal pain- this improved after cholecystectomy but only for a month, back to similar symptoms, tried several meds without relief. Never had egd or GES. Review of Systems Constitutional: Constitutional: Denies headache(s) and Denies weakness Eyes: Eyes: Denies blurry vision ENT: Reports Normal hearing present, Denies headache(s) and Denies neck pain Cardiovascular: Cardiovascular: Denies chest pain and Denies dyspnea Respiratory: Respiratory: Denies dyspnea Gastrointestinal: Gastrointestinal: Reports no additional gastrointestinal complaints Genitourinary: Genitourinary: Denies dysuria Musculoskeletal: Musculoskeletal: Denies neck pain Integumentary/Breasts: Skin/Breast: Denies dry skin Neurologic: Reports Normal hearing present, Denies headache(s) and Denies weakness Psychiatric: Psychiatric: Denies anxiety Endocrine: Endocrine: Denies change in body appearance Hematologic/Lymphatic: Hematologic/Lymphatic: Denies easy bleeding Allergic/Immunologic: Allergic/Immunologic: Denies urticaria PMFSH Past Medical History Medical History (Updated 06/19/22 @ 09:47 by Lisandro Moreau MD) Alternating constipation and diarrhea Anxiety Depression Hepatic steatosis History of PCOS Nausea and vomiting Obese PCOS (polycystic ovarian syndrome) Right upper quadrant pain Upper abdominal pain Surgical History Surgical History Hx laparoscopic cholecystectomy 01/21/22 Family History Family History Mother Breast cancer Other Ovarian cancer Social History Social History (Updated 05/20/22 @ 09:39 by Paris Rascon CMA) Smoking status: Current every day smoker Tobacco type: e-cigarettes/vaping Alcohol intake: never Substance use: never Substance use type: does not use Lack of Transportation: No Lack of Food: Never True Current Housing: I Have Housing Concerned About Future Housing: No Difficulty Paying Gas/Electric Bills: No Difficulty Paying for Meds: No Currently Unemployed: YES Education: High School Diploma/GED Difficulty w/ Childcare or Family Care: No Living arrangements: with family Additional living arrangements comments: WITH BOYFRIEND Occupation/Education: occupation Gender identity (if verbalized by the patient): Female Sexual Orientation (if Verbalized by the Patient): Straight or Heterosexual Spiritual care concerns: No Meds Home Medications and Allergies Home Medications Medication Instructions Recorded Confirmed Type etonogestrel 0.12 mg-ethinyl 1 vag ring vaginal .see comment #3 02/04/22 06/19/22 Rx estradiol 0.015 mg/24 hr vaginal ea ring (NuvaRing) ondansetron 4 mg disintegrating 4 mg PO Q8H PRN nausea and 05/07/22 06/19/22 Rx tablet vomiting #14 tabs linaclotide 72 mcg capsule 72 mcg PO DAILY 1 month #30 caps 05/14/22 06/19/22 Rx (Linzess) lansoprazole 15 mg capsule,delayed 15 mg PO DAILY 1 month #30 caps 05/20/22 06/19/22 Rx release (Prevacid 24Hr) Allergies Allergy/AdvReac Type Severity Reaction Status Date / Time No Known Allergies Allergy Verified 06/19/22 09:35 Vital Signs Vital Signs - 24 hr 06/19/22 09:38 Temperature 97.6 F Pulse Rate 125 H Respiratory Rate 17 Blood Pressure 137/84 Pulse Oximetry 99 Oxygen Delivery Room Air Exam Const: General: comfortable and no acute distress HENMT: Face/Nose/Sinus: Normal nares present Eyes: General: appearance normal, both eyes and all related structures Neck: Neck: no JVD Resp: Auscultation: clear to auscultation bilaterally Cardio: Ra
[2022-06-19 09:55] VITALS: BP 124/78; PULSE 123; RESP 28; O2SAT 95
[2022-06-19 10:05] VITALS: BP 135/80; PULSE 111; RESP 20; O2SAT 96
[2022-06-19 10:15] VITALS: BP 125/83; PULSE 96; RESP 20; O2SAT 98
== END 2022-06-19 10:25 | disposition home or self-care (01) ==
PROVIDERS: PCP Family Medicine; Visit Provider Internal Medicine Gastroenterology
PROC: 0DJ08ZZ Inspection of Upper Intestinal Tract, Via Natural or Artificial Opening Endoscopic (ICD-10-PCS; CPT 43235; principal; 2022-06-19 10:45)
DX: K21.00 Gastro-esophageal reflux disease with esophagitis, without bleeding (principal); K31.84 Gastroparesis; F17.290 Nicotine dependence, other tobacco product, uncomplicated; E66.01 Morbid (severe) obesity due to excess calories; Z68.41 Body mass index [BMI] 40.0-44.9, adult
CPT/HCPCS: 43239; 88305; J2704; J7120

== ENCOUNTER 2022-07-04 07:54 | Outpatient (CLI) | payer OTHER, SELFPAY ==
--- NOTE | ~2022-07-04 | NM_ITS ---
EXAM: NM gastric emptying study DATE: 07/04/2022 13:06 INDICATION: Nausea and vomiting. TECHNIQUE: A gastric emptying study was performed using the methodology of Khoa TOLENTINO, et al. J Nucl Med 2007; 48:568-572. The patient was given a meal consisting of 2 scrambled eggs labeled with 0.942 mCi Tc-99m sulfur colloid, 2 slices of toast, two packages of jam, and approximately 120 mL of water . Simultaneous anterior and posterior 1-min images of the abdomen were obtained with the patient supi ne at multiple time points over a total period of 4 hours. The geometric mean of anterior and posteri or views was determined, and the percentage retention was calculated for each time point. COMPARISON: CT abdomen and pelvis 05/07/2022 FINDINGS: Gastric retention of the radiotracer-labeled meal was 67%, 46%, and 3% at the 1-hour, 2-ho ur, and 4-hour time points, respectively. With this technique, apparent rapid gastric emptying is sug gested by <30% gastric retention at 1 hour. Delayed gastric emptying is defined by gastric retention of >90% at 1 hour, >60% retention at 2 hours, or >10% retention at 4 hours. IMPRESSION: 1. Normal gastric emptying. Reviewed, dictated and finalized at location A. IMPRESSION: 1. Normal gastric emptying.
== END 2022-07-04 07:55 | disposition home or self-care (01) ==
PROVIDERS: PCP Family Medicine; Visit Provider Internal Medicine Gastroenterology
DX: R10.10 Upper abdominal pain, unspecified (principal); R11.2 Nausea with vomiting, unspecified
CPT/HCPCS: 78264; A9541

== ENCOUNTER 2023-03-04 01:09 | Day surgery (SDC) | payer OTHER, SELFPAY ==
--- NOTE | 2023-02-28 10:00 | SUR.PREOP ---
Report to the Outpatient Waiting Room, entrance under the green pavilion located off [facility], at time 0900 on date 03/04/23. Planned Procedure Time: 1100. Time changes happen often and if your time is changed the preop area will call you the afternoon before. - You and your visitor will be asked to self-screen and do not enter if you have any COVID symptoms. - A mask is optional within the hospital at this time. Patients may have clear liquids (water, carbonated beverages, clear teas, apple juice) until 3 hours prior to surgery with a maximum of 20 ounces. - NO CLEAR LIQUIDS AFTER 0800 - No food from midnight until time of surgery - Infants may have breast milk until 4 hours before surgery, infant formula 6 hours prior to surgery. - Children will be allowed to drink immediately following surgery. If applicable, please bring a bottle or sippy cup to assist with drinking. Juice, water, soda, and popsicles are readily available. For infants on formula, please bring formula the day of surgery. Pacifiers are allowed. Please no make-up, nail spanish, hairspray, perfume, deodorant, or body powder the day of surgery. No jewelry (including any body piercings) or valuables the day of surgery, leave them at home. Please take a shower or bath the night before, or the morning of, surgery with an antibacterial soap. Wear comfortable, loose fitting clothing. Children are encouraged to wear pajamas. - Jewelry must be removed prior to entering the operating room. Rings and piercings that are not removed may be cut off. - The hospital will not accept responsibility for valuables. - Please leave all valuables, including medications, at home the day of surgery. If you are going home after surgery, a licensed skip load driver must drive you home. - NO public transportation without another adult if you receive anesthesia. - We recommend that an adult stay with you for 24 hours following discharge. - We also recommend that you do not drive, make important decision, drink alcoholic beverages, or take any drugs that were not prescribed by your health care provider for at least 24 hours after your discharge time. For Pediatric surgeries, we recommend two adults accompany the child home. Follow any additional instructions given to you from your surgeon. If you or anyone in your household have experienced Covid symptoms in the past week, please notify your surgeon or the nurse liaison at the phone number below for possible testing. Telephone instructions given to SHEILA GONZALES and asked if any additional questions and then verbalized understanding. Patient advised to call surgeon office or pre surgery nurse liaison [phone] if any additional questions.
[2023-02-28 10:12] VITALS: BMI 41.9
--- NOTE | 2023-03-03 17:49 | PM.IMHP ---
H&P: HPI History of Present Illness Date/Time: 03/03/23 17:49 Chief Complaint: recurrent tonsillitis chronic tonsillitis Narrative: planned procedure Review of Systems Review of Systems: All systems reviewed & are unremarkable except as noted in HPI and below PMFSH Past Medical History Medical History Anxiety Constipation Depression Hepatic steatosis History of PCOS Nausea and vomiting Obese PCOS (polycystic ovarian syndrome) Right upper quadrant pain Upper abdominal pain Surgical History Surgical History Hx laparoscopic cholecystectomy 01/21/22 Family History Family History Mother Breast cancer Other Ovarian cancer Social History Social History Smoking status: Current every day smoker Tobacco type: e-cigarettes/vaping Alcohol intake: never Substance use: never Substance use type: does not use Lack of Transportation: No Lack of Food: Never True Current Housing: I Have Housing Concerned About Future Housing: No Difficulty Paying Gas/Electric Bills: No Difficulty Paying for Meds: No Currently Unemployed: YES Education: High School Diploma/GED Difficulty w/ Childcare or Family Care: No Living arrangements: with family Additional living arrangements comments: WITH BOYFRIEND Occupation/Education: occupation Gender identity (if verbalized by the patient): Female Sexual Orientation (if Verbalized by the Patient): Straight or Heterosexual Spiritual care concerns: No Meds Home Medications and Allergies Home Medications Medication Instructions Recorded Confirmed Type etonogestrel 0.12 mg-ethinyl 1 vag ring vaginal .see comment 10/21/22 02/28/23 Rx estradiol 0.015 mg/24 hr vaginal #12 ea ring (NuvaRing) linaclotide 145 mcg capsule 145 mcg PO DAILY 02/28/23 02/28/23 History (Linzess) metformin 500 mg tablet,extended 250 mg PO HS 02/28/23 02/28/23 History release 24 hr Allergies Allergy/AdvReac Type Severity Reaction Status Date / Time No Known Allergies Allergy Verified 02/28/23 10:06 Exam Narrative: large tonsils Assessment and Plan Assessment and plan (1) Recurrent tonsillitis: Code(s): J03.91 - Acute recurrent tonsillitis, unspecified Status: Acute Assessment and Plan: OR tonsillectomy risks discussed bleeding infection damage to surrounding structures 5% chance bleeding after surgery time of her time at school in [place] or cotton cues change in swallow change in taste could be permanent. . Need for time off a damage to any structure the clavicles by myself damage to any structure during induction and maintenance of anesthesia.
[2023-03-04] VITALS (9 sets, daily range): BP systolic 103–136; BP diastolic 57–85; PULSE 75–107; RESP 14–18; TEMP 36–36.6; O2SAT 93–100
--- NOTE | 2023-03-04 07:13 | WPDHPUPDATE1 ---
History and Physical Update Update Date/Time: 03/04/23 07:13 History and Physical has been reviewed, including an updated exam of the patient. There are NO changes in the patient's condition. Risks, benefits, and alternatives have been discussed and questions answered. Patient agrees to proceed with procedure.
--- NOTE | 2023-03-04 08:11 | WPDANESEPPF ---
Anes - Initial Pre Proc Eval Procedure: Operation Date: 03/04/23 09:45 Proposed Procedures p Tonsillectomy - Shorty Charles MD Date/Time: 03/04/23 08:11 Surgeon: Shorty Charles MD Pre Op Diagnosis: Recurrent Tonsillitis Patient Data Age: 22 Gender: F Height: 1.57 m Weight: 104 kg Allergies Allergy/AdvReac Type Severity Reaction Status Date / Time No Known Allergies Allergy Verified 02/28/23 10:06 Home Medications Medication Instructions Recorded Confirmed Type etonogestrel 0.12 mg-ethinyl 1 vag ring vaginal .see comment 10/21/22 02/28/23 Rx estradiol 0.015 mg/24 hr vaginal #12 ea ring (NuvaRing) linaclotide 145 mcg capsule 145 mcg PO DAILY 02/28/23 02/28/23 History (Linzess) metformin 500 mg tablet,extended 250 mg PO HS 02/28/23 02/28/23 History release 24 hr Patient hx anesthesia problems: none Family hx anesthesia problems: none Results Review: All pre-operative results and documents have been reviewed as part of the pre-operative evaluation. [facility] Past Medical History Medical History Anxiety Constipation Depression Hepatic steatosis History of PCOS Nausea and vomiting Obese PCOS (polycystic ovarian syndrome) Right upper quadrant pain Upper abdominal pain Surgical History Surgical History Hx laparoscopic cholecystectomy 01/21/22 Family History Family History Mother Breast cancer Other Ovarian cancer Social History Social History Smoking status: Current every day smoker Tobacco type: e-cigarettes/vaping Alcohol intake: never Substance use: never Substance use type: does not use Lack of Transportation: No Lack of Food: Never True Current Housing: I Have Housing Concerned About Future Housing: No Difficulty Paying Gas/Electric Bills: No Difficulty Paying for Meds: No Currently Unemployed: YES Education: High School Diploma/GED Difficulty w/ Childcare or Family Care: No Living arrangements: with family Additional living arrangements comments: WITH BOYFRIEND Occupation/Education: occupation Gender identity (if verbalized by the patient): Female Sexual Orientation (if Verbalized by the Patient): Straight or Heterosexual Spiritual care concerns: No Anes - Eval Final PreProcedure Day of Procedure 03/04/23 08:11 Patient weight: morbidly obese Heart: regular rate and rhythm Lungs: clear to auscultation Airway: Mallampati scale class II Neurological: alert and oriented Last oral intake: >/= 8 hours ASA classification: III Emergent: no Anesthetic plan: proceed Anesthesia type and monitoring: general ETT and standard monitoring Results Review: All pre-operative results and documents have been reviewed as part of the pre-operative evaluation. Informed Consent: The patient's anesthetic plan and its attendant risks and benefits were discussed with the patient/family/POA. Questions were solicited and answers provided to the satisfaction of the patient/family/POA.
[2023-03-04] MEDS: LACTATED RINGERS 1,000 ML 30 ML IV CONT ×2 (08:30→11:13)
[2023-03-04] MEDS: ACETAMINOPHEN 500 MG TABLET 1000 MG PO (08:30)
--- NOTE | 2023-03-04 10:31 | W.PM.PROC2 ---
Procedure Note - Detailed Date of Procedure 03/04/23 Pre-op Diagnosis Recurrent Tonsillitis Post-op Diagnosis Same Procedure Performed Tonsillectomy Surgeon Shorty Charles MD Anesthesia General Indications see above Findings a fairly endophytic scarred in tonsils. Description of Procedure Patient identified consent verified prep. Patient brought to the operating room. Time-out performed. General anesthesia induced endotracheal tube secured airway. Patient prepped draped position proceed to confirm 2nd time-out performed. McIvor mouth gag inserted reveal endophytic tonsils removed extracapsular plane minimal bleeding 1-2 cc. Bilaterally. In between tonsil McIvor mouth gag was lowered reopened to allow blood flow to return to the tongue. After tonsils are out McIvor mouth gag was lowered for 30 seconds and reopened to reveal no further bleeding. Patient tolerated the procedure well no complications cares patient given anesthesiology performed all dictated portions of procedure total blood loss about 2 cc. Estimated Blood Loss 2 Drains No Packing No Pathology Yes Complications No immediate complications Condition Stable Disposition PACU [facility] Billing Surgery - Charge Forward: Surgery Billing
[2023-03-04] MEDS: fentaNYL CITRATE INJ (*CRX) 100 MCG/2 ML VIAL 25 MCG IV PUSH ×7 (10:40→11:14)
[2023-03-04] MEDS: oxyCODONE (*CRX) 5 MG/5 ML ORAL SOLN IR PO (11:41)
== END 2023-03-04 12:24 | disposition home or self-care (01) ==
PROVIDERS: PCP Family Medicine; Visit Provider Otolaryngology
PROC: (CPT 42826; principal; 2023-03-04 09:45)
DX: J03.91 Acute recurrent tonsillitis, unspecified (principal); E28.2 Polycystic ovarian syndrome; K59.00 Constipation, unspecified; Z79.84 Long term (current) use of oral hypoglycemic drugs; F17.290 Nicotine dependence, other tobacco product, uncomplicated; E66.01 Morbid (severe) obesity due to excess calories; Z68.39 Body mass index [BMI] 39.0-39.9, adult
CPT/HCPCS: 42826; 88304; A9270; J0330; J1100; J1940; J2250; J2405; J2704; J3010; J7120

== ENCOUNTER 2023-05-27 13:10 | Outpatient (CLI) | payer OTHER, SELFPAY ==
--- NOTE | ~2023-05-27 | XR_ITS ---
Thoracic spine: Clinical Indication: Back pain AP and lateral views were performed. No fracture is seen. There is normal alignment of the vertebrae. The intervertebral disc spaces appe ar normal. Paravertebral soft tissues appear normal. Impression: No significant abnormalities noted. Reviewed, dictated and finalized at [facility]. PROMENADE TILE SETTER Impression: No significant abnormalities noted.
--- NOTE | ~2023-05-27 | XR_ITS ---
Cervical Spine: AP, oblique, lateral, open-mouth views, with neutral, flexion, extension positioning Clinical History: Pain Findings: The normal lordotic curve is maintained. The vertebral bodies and posterior elements appea r intact. The intervertebral disc spaces are well maintained. Pre-vertebral soft tissues are unremar kable. Impression: No significant abnormality is seen. Reviewed, dictated and finalized at location . LEATHER TRIMMER Impression: No significant abnormality is seen.
== END 2023-05-27 13:11 | disposition home or self-care (01) ==
LOC: ANHIMG 13:11
PROVIDERS: PCP Family Medicine; Visit Provider Family Medicine
DX: M54.2 Cervicalgia (principal); M54.6 Pain in thoracic spine
CPT/HCPCS: 72052; 72072

== ENCOUNTER 2023-08-26 00:24 | Day surgery (SDC) | payer OTHER, SELFPAY ==
--- NOTE | 2023-08-13 16:25 | PC.NURSE ---
Report to the Outpatient Waiting Room, entrance under the green pavilion located off [facility], at time 1200 on date 08/26/23. Planned Procedure Time: 1400 . Time changes happen often and if your time is changed the preop area will call you the afternoon before. - You and your visitor will be asked to self-screen and do not enter if you have any COVID symptoms. - A mask is optional within the hospital at this time. Patients may have clear liquids (water, carbonated beverages, clear teas, apple juice) until 3 hours prior to surgery with a maximum of 20 ounces. 1100 - No food from midnight until time of surgery - Infants may have breast milk until 4 hours before surgery, infant formula 6 hours prior to surgery. - Children will be allowed to drink immediately following surgery. If applicable, please bring a bottle or sippy cup to assist with drinking. Juice, water, soda, and popsicles are readily available. For infants on formula, please bring formula the day of surgery. Pacifiers are allowed. Take the following medications with a SIP of water the morning of surgery: N/A DO NOT STOP ANY OF YOUR OTHER PRESCRIPTION MEDICATIONS PRIOR TO SURGERY ?EXCEPT THE FOLLOWING Medications to discontinue per physician N/A Date to take last dose N/A Please no make-up, nail japanese, hairspray, perfume, deodorant, or body powder the day of surgery. No jewelry (including any body piercings) or valuables the day of surgery, leave them at home. Please take a shower or bath the night before, or the morning of, surgery with an antibacterial soap. Wear comfortable, loose fitting clothing. Children are encouraged to wear pajamas. - Jewelry must be removed prior to entering the operating room. Rings and piercings that are not removed may be cut off. - The hospital will not accept responsibility for valuables. - Please leave all valuables, including medications, at home the day of surgery. If you are going home after surgery, a licensed medical van driver must drive you home. - NO public transportation without another adult if you receive anesthesia. - We recommend that an adult stay with you for 24 hours following discharge. - We also recommend that you do not drive, make important decision, drink alcoholic beverages, or take any drugs that were not prescribed by your health care provider for at least 24 hours after your discharge time. For Pediatric surgeries, we recommend two adults accompany the child home. Follow any additional instructions given to you from your surgeon. If you or anyone in your household have experienced Covid symptoms in the past week, please notify your surgeon or the nurse liaison at the phone number below for possible testing. Telephone instructions given to Patient- Raisa Gallagher and asked if any additional questions and then verbalized understanding. Patient advised to call surgeon office or pre surgery nurse liaison [phone] if any additional questions.
[2023-08-13 16:31] VITALS: BMI 40.3
--- NOTE | 2023-08-25 12:36 | P.HP_ITS ---
H&P: HPI History of Present Illness Date/Time: 08/25/23 12:36 Chief Complaint: Recurrent on chronic adenoiditis Narrative: planned procedure Review of Systems 2 Review of Systems: All systems reviewed & are unremarkable except as noted in HPI and below PMFSH Past Medical History Medical History Anxiety Constipation Depression Hepatic steatosis History of PCOS Nausea and vomiting Obese PCOS (polycystic ovarian syndrome) Right upper quadrant pain Upper abdominal pain Surgical History Surgical History History of tonsillectomy Hx laparoscopic cholecystectomy 01/21/22 Family History Family History Mother Breast cancer Other Ovarian cancer Social History Social History Smoking status: Current every day smoker Tobacco type: e-cigarettes/vaping Alcohol intake: never Substance use: never Substance use type: does not use Do You Feel Safe in your Home?: Yes Lack of Transportation: No Lack of Food: Never True Current Housing: I Have Housing Concerned About Future Housing: No Difficulty Paying Gas/Electric Bills: No Difficulty Paying for Meds: No Currently Unemployed: YES Education: High School Diploma/GED Difficulty w/ Childcare or Family Care: No Living arrangements: with family Additional living arrangements comments: WITH BOYFRIEND Occupation/Education: occupation Gender identity (if verbalized by the patient): Female Sexual Orientation (if Verbalized by the Patient): Straight or Heterosexual Spiritual care concerns: No Meds Home Medications and Allergies Home Medications Medication Instructions Recorded Confirmed Type etonogestrel 0.12 mg-ethinyl 1 vag ring vaginal .see comment 05/14/23 08/13/23 Rx estradiol 0.015 mg/24 hr vaginal #12 ea ring (NuvaRing) Allergies Allergy/AdvReac Type Severity Reaction Status Date / Time No Known Allergies Allergy Verified 07/21/23 15:39 Exam Narrative: chronic appearing adenoids Assessment and Plan Assessment and plan (1) Adenoiditis: Code(s): J35.02 - Chronic adenoiditis Status: Acute Assessment and Plan: OR for adenoidectomy. Risks discussed including bleeding infection damage to surrounding structures damage to any structure the clavicles by cell change in taste changes os could be permanent nasal regurgitation. Regrowth of adenoids. Need further procedures. Damage to any structure induction and maintenance of anesthesia. (2) Otalgia of both ears: Code(s): H92.03 - Otalgia, bilateral Status: Acute
[2023-08-26] VITALS (7 sets, daily range): BP systolic 97–133; BP diastolic 47–83; PULSE 75–107; RESP 12–18; TEMP 36.3–36.6; O2SAT 97–100
--- NOTE | 2023-08-26 07:20 | WPDHPUPDATE1 ---
History and Physical Update Update Date/Time: 08/26/23 07:20 History and Physical has been reviewed, including an updated exam of the patient. There are NO changes in the patient's condition. Risks, benefits, and alternatives have been discussed and questions answered. Patient agrees to proceed with procedure.
[2023-08-26] MEDS: LACTATED RINGERS 1,000 ML 30 ML IV CONT (13:02)
--- NOTE | 2023-08-26 13:42 | WPDANESEPPF ---
Anes - Initial Pre Proc Eval Procedure: Operation Date: 08/26/23 14:00 Proposed Procedures p Adenoidectomy - Shorty Charles MD Date/Time: 08/26/23 13:42 Surgeon: Shorty Charles MD Pre Op Diagnosis: Recurrent Adenoidnitis Patient Data Age: 23 Gender: F Height: 1.57 m Weight: 100.6 kg Last Vital Signs Temp 36.3 C L 08/26/23 12:17 Pulse 107 H 08/26/23 12:17 Resp 18 08/26/23 12:17 BP 133/82 08/26/23 12:17 Pulse Ox 100 08/26/23 12:17 O2 Del Method Room Air 08/26/23 12:17 Allergies Allergy/AdvReac Type Severity Reaction Status Date / Time No Known Allergies Allergy Verified 08/26/23 12:17 Home Medications Medication Instructions Recorded Confirmed Type etonogestrel 0.12 mg-ethinyl 1 vag ring vaginal .see comment 05/14/23 08/26/23 Rx estradiol 0.015 mg/24 hr vaginal #12 ea ring (NuvaRing) Patient hx anesthesia problems: none Family hx anesthesia problems: none Results Review: All pre-operative results and documents have been reviewed as part of the pre-operative evaluation. [facility]LY [facility] Past Medical History Medical History Anxiety Constipation Depression Hepatic steatosis History of PCOS Nausea and vomiting Obese PCOS (polycystic ovarian syndrome) Right upper quadrant pain Upper abdominal pain Surgical History Surgical History History of tonsillectomy Hx laparoscopic cholecystectomy 01/21/22 Family History Family History Mother Breast cancer Other Ovarian cancer Social History Social History Smoking status: Current every day smoker Tobacco type: e-cigarettes/vaping Alcohol intake: never Substance use: never Substance use type: does not use Do You Feel Safe in your Home?: Yes Lack of Transportation: No Lack of Food: Never True Current Housing: I Have Housing Concerned About Future Housing: No Difficulty Paying Gas/Electric Bills: No Difficulty Paying for Meds: No Currently Unemployed: YES Education: High School Diploma/GED Difficulty w/ Childcare or Family Care: No Living arrangements: with family Additional living arrangements comments: WITH BOYFRIEND Occupation/Education: occupation Gender identity (if verbalized by the patient): Female Sexual Orientation (if Verbalized by the Patient): Straight or Heterosexual Spiritual care concerns: No Anes - Eval Final PreProcedure Day of Procedure 08/26/23 13:42 Patient weight: morbidly obese Heart: regular rate and rhythm Lungs: clear to auscultation Airway: Mallampati scale class II Neurological: alert and oriented Last oral intake: >/= 8 hours ASA classification: III Emergent: no Anesthetic plan: proceed Anesthesia type and monitoring: general ETT and standard monitoring Results Review: All pre-operative results and documents have been reviewed as part of the pre-operative evaluation. Informed Consent: The patient's anesthetic plan and its attendant risks and benefits were discussed with the patient/family/POA. Questions were solicited and answers provided to the satisfaction of the patient/family/POA.
[2023-08-26] MEDS: ACETAMINOPHEN 500 MG TABLET 1000 MG PO (13:52)
[2023-08-26] MEDS: fentaNYL CITRATE INJ (*CRX) 100 MCG/2 ML VIAL 25 MCG IV PUSH ×2 (15:25→15:28)
[2023-08-26] MEDS: oxyCODONE HCL (*CRX) 5 MG TAB IR PO (16:06)
--- NOTE | 2023-08-26 16:54 | W.PM.PROC2 ---
Procedure Note - Detailed Date of Procedure 08/26/23 Pre-op Diagnosis Recurrent Adenoidnitis Post-op Diagnosis Same Procedure Performed Adenoidectomy Surgeon Shorty Charles MD Anesthesia General Indications see above Findings scant cellulitis of the adenoid pad much improved appearance since clinic Description of Procedure patient identified consent verified preop. Patient brought operating room. Time-out performed. General anesthesia induced endotracheal tube secured airway patient prepped draped position procedure confirmed. McIvor mouth gag inserted red rubber catheters placed transnasally suspended anteriorly. Adenoid pad viewed. But 1 to 2+. Really nonobstructive a cellulitic appearing no purulence today. Removed with Bovie suction electrocautery setting of high setting of 30 high suction. Minimal bleeding if any. No damage to napoleon no damage to posterior choana no damage to napoleon. McIvor mouth gag and red rubber catheters removed. Care the patient given back to Anesthesiology blood loss essentially 0 cc. I performed all dictated portions of the procedure. No complications. Estimated Blood Loss 0 Drains No Packing No Pathology None sent Complications No immediate complications Condition Stable Disposition PACU [facility] Billing Surgery - Charge Forward: Surgery Billing
== END 2023-08-26 16:26 | disposition home or self-care (01) ==
PROVIDERS: PCP Family Medicine; Visit Provider Otolaryngology
PROC: (CPT 42831; principal; 2023-08-26 14:00)
DX: J35.02 Chronic adenoiditis (principal); F17.290 Nicotine dependence, other tobacco product, uncomplicated
CPT/HCPCS: 42831; A9270; J0330; J1100; J2250; J2405; J2704; J3010; J7120

== ENCOUNTER 2024-04-05 14:53 | Outpatient (CLI) | payer OTHER, SELFPAY ==
--- NOTE | ~2024-04-05 | XR_ITS ---
CHEST RADIOGRAPH, PA AND LATERAL CLINICAL HISTORY: Lymphocytosis and elevated CRP and sedimentation rate with joint inflammation Scler osis and hypertrophic. COMPARISON: 01/26/2022 TECHNIQUE: PA and lateral views of the chest. FINDINGS The cardiomediastinal silhouette is unremarkable (specifically, no bulky lymphadenopathy is appreciat ed on plain film evaluation). The lungs are clear. Visualized osseous structures and soft tissues are unremarkable. IMPRESSION: No focal infiltrate or effusion. Reviewed, dictated and finalized at location A. ATRIC DERMATOLOGIST
== END 2024-04-05 14:54 | disposition home or self-care (01) ==
PROVIDERS: PCP Family Medicine
DX: D72.820 Lymphocytosis (symptomatic) (principal); R79.82 Elevated C-reactive protein (CRP); R70.0 Elevated erythrocyte sedimentation rate
CPT/HCPCS: 71046

== ENCOUNTER 2024-09-01 07:41 | Outpatient (CLI) | payer OTHER, SELFPAY ==
--- OUTSIDE RECORDS SUMMARY | 2024-09-01 07:44 | XMS_ITS | Clinical Summary ---
Author Organization [facility] Address [address] [place] [address] Care Team Providers Care Relay Tester Name Role Phone Sarina Geiger DO Primary Care Provider [phone] Source Comments [facility],non-[facility]ates and Associated Physician Practices is amultiple site organization consisting of ambulatory clinics and hospital sitesin [place], [place], [place] and [place]. This disclosure is being madepursuant to the Care Everywhere program and may not contain all information available regarding this patient. Last updated 17.[facility] Social History Tobacco Use Types Packs/Day Years Used Date Smoking Tobacco: Never Assessed Comments Unknown Sex and Gender Information Value Date Recorded Sex Assigned at Not on file Legal Sex Female 12:23 PM DOCTOR OF PHARMACY Gender Identity Not on file Sexual Orientation Not on file Plan of Treatment Upcoming Encounters Date Type Department Care Team (Late st Contact Info) Description 12/16/2024 2:30 PM CDT Video Visit [facility] - Hematology/Oncology [address] [place] [address] Galilea Goode, [address] [place] [address] Health Maintenance Due Date Last Done Comments PAP SMEAR 2001 HIV SCREENING 2016 HPV VACCINE (1 - 3-dose series) 2016 CHLAMYDIA/GONORRHEA SCREENING 2017 MENINGOCOCCAL (Group B) VACC INE SHARED DECISION-MAKING (1 of 2 - Standard) 2017 HEPATITIS C SCREENING 08/03/2019 DTAP/TDAP/TD VACCINES (1 - Tdap) 2020 HEPATITIS B VACCINE (1 of 3 - 19+ 3-dose series) 2020 COVID-19 VACCINE (1 - 2023-2 5 season) 2023 DEPRESSION SCREENING 03/24/2024 INFLUENZA VACCINE (Season Ended) 2024 ZOSTER VACCINE (1 of 2) 08/08/2051 HIB VACCINE Aged Out No longer eligi ble based on patient's age to complete this topic MENINGOCOCCAL GROUPS A/C/Y/W VACCINE Aged Out No longer eligible b ased on patient's age to complete this topic PNEUMOCOCCAL VACCINE Aged Out No long er eligible based on patient's age to complete this topic Insurance [facility] SELF PAY NO INSURANCE Member Subscriber Plan / Payer (Ef fective for All Dates) Name:Sheila Gallagher Member ID:Not on file Relation to Subscriber:Not on file Name:SHEILA GALLAGHER Subscriber ID:Not on file Address: [address] [place] [id number] Payer ID:Not on file Group ID:Not on file Type:Self Pay Address: [place], [place] Care Teams Relay Tester Relationship Specialty Start Date End Date Sarina Geiger DO [address] Adolfo BREAUX, [facility] (work) PCP - General 07/11/22
--- OUTSIDE RECORDS SUMMARY | 2024-09-01 07:44 | XMS_ITS | Patient Health Record ---
Author Organization [facility] Address [address] [place] [address] Care Team Providers Care Manager Commercial Name Role Phone Ariela West Primary Care Provider Allergies No Known Allergies Reason For Referral No Information Medications Medication SIG (Take, Route, Fr equency, Duration) Notes Start Date End Date Status Lexapro 10 MG 1 tablet Orally at n ight for 30 day(s) 10/22/2021 Active Abilify Maintena 400 MG as directed Intr amuscular once a month for 30 days Active Abilify 10 MG 1 tablet Orally Once a day for 30 day(s) 10/22/2021 Active Social History Tobacco Use: Social History Observation Description Date Details (start date - stop date) Unknown Sex Assigned At : Social History Observation Description Sex Assigned At Female Dont use, Tobacco Use/Smoking Question Answer Notes Are you a Uses tobacco in other forms Additional Findings: Tobacco User e-Cigarette Sexual History Question Answer Notes Had sex in the past 12 months (vaginal, oral, or anal)? Yes with Men only Use protection? Yes Prevention strategies discussed: Condoms Problems Problem Type SNOMED Code ICD Code Onset Dates Problem Status W/U Status Risk Notes Problem 18305834 Bipolar II disorder (F31.81) Active confirmed rule out Bipolar I Problem Generalized anxiety disorder (16855792) Generalized anxiety disorder (F41.1) Active confirmed Problem 393571528 Bipolar 1 disorder (F31.9) Active confirmed Problem Polycystic ovary syndrome (disorder) (022512144) PCOS (polycystic ovarian syndrome) (E28.2) Active confirmed Problem Posttraumatic stress disorder (95285840) Post traumatic stress disorder (PTSD) (F43.10) 08/17/19 21 Active confirmed PCL5 65 08/16/2020 Best friend committed suicide 10/2020 Problem Adjustment disorder with depressed mood (57335936) Grief reaction (F43.21) Active confirmed best friend committed suicide Plan Of Treatment No Information Insurance Providers Payer Name Payer Address Payer Phone Subscriber Number Group Number Insured Name Patient Relationship to Insured Coverage Start Date Coverage End Date [facility] Attn Claims Department [address] [place] [address] [phone] [id number] Raisa Gallagher Self - patient is the insured 0 [employer] Attn Claims Department [address] [place] [address] [phone] [id number] Raisa Gallagher Self - patient is the insured 0 Medications Administered Medication Instructions Date of Administration Dosage Notes Abilifjohnnie Maintena 07/04/2021 400 mg Patient tolerated well. Abilify Maintena 08/13/2021 400 mg Patient tolerated well. Medical (General) History Medical History History ICD Code PCOS (polycystic ovarian syndrome) Surgical History Surgery Date(Month/Year) Hospitalization History Reason Date(Month/Year) [facility] hospitalization for SI/aggressio n 05/2015
--- OUTSIDE RECORDS SUMMARY | 2024-09-01 07:44 | XMS_ITS | Clinical Summary ---
Author Organization [facility] Address [address] [place] [address] Care Team Providers Care Chart Collector Name Role Phone Sarina Geiger DO Primary Care Provider [phone] Emerson Martinez MD Unavailable [phone] Allergies Active Allergy Reactions Criticality Noted Date Comments Azelastine Itching Low 12/09/2023 Eyes became itchy and red. Also had GI issues. Olopatadine Itching Low 12/09/2023 Eyes became red and itchy. Also had GI issues. Medications EluRyng 0.12-0.015 mg/24 hr vaginal ring INSERT 1 RING VAGINALLY EVERY 21 DAYS TO SKIP CYCLES 4 Active mometasone (NASONEX) 50 mcg/actuation nasal sprayIndication s:Seasonal allergic rhinitis due to other allergic trigger INSTILL 1 SPRAY INTO EACH NOSTRIL TWICE DAILY 51 g 2 5 Active Active Problems Problem Noted Date Diagnosed Date Bipolar II disorder 12/09/2023 PCOS (polycystic ovarian syndrome) 12/09/2023 Generalized anxiety disorder 12/09/2023 Posttraumatic stress disorder 08/16/2020 Resolved Problems Problem Noted Date Diagnosed Date Resolved Date Polycystic ovary syndrome 06/01/2024 Encounters Date Type Department Care Team Description 06/01/2024 2:15 PM CDT Lab [facility] [address] [place] [facility] [address] Elevated C-reactive protein (CRP) 06/01/2024 1:30 PM CDT - 06/01/2024 11:59 PM CDT Hospital Encounter [facility] [address] [place] [address] Elevated C-reactive protein (CRP) Discharge Disposition: Discharge to home or self care 06/01/2024 1:00 PM CDT Office Visit [facility] Rhe[facility] [address] [facility] [address] [place] [id number] Germania Solorzano NP Elevated C-reactive protein (CRP) from Last 3 Months Immunizations Immunization Administration Dates Next Due Pneumococcal Polysaccharide PPV23 12/30/2023 Surgical History Surgery Date Site/Laterality Comments GALLBLADDER SURGERY had reoved 01/21/2022 TONSILLECTOMY 03/04/2023 ADENOIDECTOMY Medical History Medical History Date Comments Seasonal allergies sinus infecti ons Heart burn Family History Medical History Relation Name Comments Breast cancer Mother Ovarian cancer Mother Relation Name Status Comments Mother Alive Social History Tobacco Use Types Packs/Day Years Used Date Smoking Tobacco: Every Day Vaping Tobacco Cessation:Ready to Q uit: Not Asked; Counseling Given: Not Answered AUDIT-C Answer Date Recorded Frequency of Alcohol Consumption Not on file 06/01/2024 Q2: How many drinks containi ng alcohol do you have on a typical day when you are drinking? Patient does not drink Frequency of Binge Drinking Not on file 05/22 Comments Unknown Sex and Gender Information Value Date Recorded Sex Assigned at Not on file Legal Sex Female 4:06 PM CDT Gender Identity Not on file Sexual Orientation Not on file Obstetrics History Last Filed Vital Signs Vital Sign Reading Time Taken Comments Blood Pressure 122/85 06/01/2024 12:58 PM CDT Pulse 100 06/01/2024 12:58 PM CDT Temperature 36.9 C (98.5 F) 06/01/2024 12:58 PM CDT Respiratory Rate 18 02/09/2024 11:4 2 AM INTERNATIONAL LOGISTICS MANAGER Oxygen Saturation 98% 06/01/2024 12: 58 PM CDT Inhaled Oxygen Concentration - - Weight 107.9 kg (237 lb 12.8 oz) 2024 12:58 PM CDT Height 157.5 cm (5' 2) 06/01/2024 12:5 8 PM CDT Body Mass Index 43.49 06/01/2024 12:58 PM CDT Plan of Treatment Health Maintenance Due Date Last Done Comments Cervical Cancer Screening 2001 Depression Screening 2001 Hepatitis C Screening 2001 Meningococcal B Vaccine (1 o f 2 - Standard) 2017 Regular Well Visit/Exam 18-64 08/08/2019 Zoster Vaccine (1 of 2) 2020 DTaP/Tdap/Td Vaccine (7 - Td or Tdap) 09/10/2022 09/10/2012, 11/22/2005, 05/05/2003, Additional history exists Covid-19 Vaccine (4 - 2023-2 5 season) 2023 06/23/2021, 07/29/2020, 07/08/2020 Influenza Vaccine (Season Ended) 2024 Pneumococcal vaccine <65 (2 of 2 - PPSV23, PCV20 or PCV21) 12/29/2028 12/30/2023, 08/26/2002, 05/07/2002, Additional history exists Hepatitis B Screening Completed 08/26/2002 , 2001, 2001 Varicella Vaccines Completed 09/25/2006, 05/05/2003 HPV Vaccines Completed 06/18/2017, 10/22, 09/03/2016 Procedures Procedure Name Priority Date/Time Associated Diagnosis Comments MANUAL DIFFERENTIAL Routine 06/01/2024 2 :09 PM CDT Elevated C-reactive protein (CRP) SENIOR STAFF REVIEW Routine 06/01/2024 2 :09 PM CDT Elevated C-reactive protein (CRP) HEMOGLOBIN A1C Routine 06/01/2024 2:09 PM CDT Elevated C-reactive protein (CRP) CBC WITH AUTO DIFFERENTIAL Routine 06/01/2024 2:09 PM CDT Elevated C-reactive protein (CRP) CRP (ACUTE PHASE) Routine 06/01/2024 2:0 9 PM CDT Elevated C-reactive protein (CRP) ERYTHROCYTE SEDIMENTATION RATE Routine 06/01/2024 2:09 PM CDT Elevated C-reactive protein (CRP) XR SACROILIAC JOINTS LESS THAN 3 VIEWS Schedule Routine, Read Routine (OP Routine) 06/01/2024 1:43 PM CDT Elevated C-reactive protein (CRP) from Last 3 Months Results * Senior staff review (06/01/2024 2:09 PM CDT) Pathologist [facility] Senior Staff Review Specimen Blood Comment:Testing performed by : [facility], [address] [place]., [address] Senior Staff Review Review Done CHEMA VIVEROS Comment: Reviewed by senior staff.06/02/2024 10:33:16 CDT by [facility] Testing performed by: [facility], [address] [place] [address]., [id number] Blood 06/01/2024 2:09 PM CDT 06/01/2024 6:49 PM CDT us Rhonda Welsh MD LAB BLOOD ORDERABLES Edite d Result - Final [facility] [address] [facility]. Department [place] [address] * (ABNORMAL) CBC with auto differential (06/01/2024 2:09 PM CDT) Pathologist [facility] WBC 11.9(H) 3.8 - 9.9 K/cumm Hgb 13.4 11.9 - 15.5 g/dL [facility] Hct 39.9 35.6 - 45.5 % CHEMA SANCHEZ Plt 366 150 - 400 K/cumm CHEMA SANCHEZ MPV 11.2 9.1 - 12.3 fL [facility] RBC 4.66 3.90 - 5.20 M/cumm [facility] MCV 85.6 81.3 - 96.4 fL [facility] MCH 28.8 27.1 - 33.3 pg [facility] MCHC 33.6 32.3 - 35.7 g/dL CHEMA SANCHEZCH RDW CV 13.2 11.1 - 14.9 % [facility] RDW SD 40.8 35.7 - 48.1 fL [facility] NRBC abs 0.00 0.00 - 0.01 K/cumm [facility]ER [facility] Blood 06/01/2024 2:09 PM CDT 06/01/2024 2:18 PM CDT Germania Solorzano NP LAB BLOOD ORDERABLES Fi nal Result [facility] [address] [facility] Department [place] [address] * (ABNORMAL) Manual Differential (06/01/2024 2:09 PM CDT) Neutrophil abs 4.4 1.5 - 6.5 K/cumm Comment:Testing performed by : [facility], [address] [place] [address]., [address] Lymphocyte abs 7.1(H) 0.8 - 3.3 K/cumm [facility] Comment:Testing performed by : [facility], [address] [place]., [address] Monocyte abs 0.1(L) 0.2 - 0.8 K/cumm [facility] Comment:Testing performed by : [facility], [address] [place] [address]., [address] Eosinophil abs 0.2 0.0 - 0.5 K/cumm C[facility]ER [facility] Comment:Testing performed by : [facility], [address] [place]., [address] Basophil abs 0.1 0.0 - 0.1 K/cumm [facility]ER [facility] Comment:Testing performed by : [facility], [address] [place]., [address] Neutrophil pct 36.8 % CERNE R [facility] Comment: Interpretive Data Percent cell count reference ranges are not reported, since discordance with absolute values may lead to misinterpretation of CBC data. Current Interpretive Data was last revised on 2017. Testing performed by: [facility], [address] [place]., [address] Lymphocyte pct 50.9 % CERNE R [facility]ERI[facility] Comment: Interpretive Data Percent cell count reference ranges are not reported, since discordance with absolute values may lead to misinterpretation of CBC data. Current Interpretive Data was last revised on 2017. Testing performed by: [facility], [address] [place]., [address] Monocyte pct 0.9 % CERNER [facility] Comment: Interpretive Data Percent cell count reference ranges are not reported, since discordance with absolute values may lead to misinterpretation of CBC data. Current Interpretive Data was last revised on 2017. Testing performed by: [facility], [address] [place]., [address] Eosinophil pct 1.8 % CERBLANCA R SHERIW[facility] Comment: Interpretive Data Percent cell count reference ranges are not reported, since discordance with absolute values may lead to misinterpretation of CBC data. Current Interpretive Data was last revised on 2017. Testing performed by: [facility], [address] [place]., [address] Basophil pct 0.9 % CERALLY [facility] Comment: Interpretive Data Percent cell count reference ranges are not reported, since discordance with absolute values may lead to misinterpretation of CBC data. Current Interpretive Data was last revised on 2017. Testing performed by: [facility], [address] [place]., [address] Variant lymph pct 8.8(H) 0.0 - 0.0 % CERALLY SANCHEZCH Comment:Testing performed by : [facility], [address] [place]., [address] RBC morphology Consistent with RBC Indicies CHEMA VIVEROS Comment:Testing performed by : [facility], [address] [place]., [address] Platelet estimate Adequate CE RNER [facility] Comment:Testing performed by : [facility], [address] [facility], [place] [address] Blood 06/01/2024 2:09 PM CDT 06/01/2024 6:49 PM CDT us Germania Solorzano NP LAB BLOOD ORDERABLES Fi nal Result [facility] [address] [address] * (ABNORMAL) Erythrocyte sedimentation rate (06/01/2024 2:09 PM CDT) Pathologist [facility] Erythrocyte sedimentation rate 31(H) 1 - 20 mm/hr Blood 06/01/2024 2:09 PM CDT 06/01/2024 2:18 PM CDT Germania Solorzano NP LAB BLOOD ORDERABLES Fi nal Result Performing Organization Address [facility] Co de Phone Number [facility] [address] [address] [facility] [employer] [place], [place] [id number] * (ABNORMAL) CRP (acute phase) (06/01/2024 2:09 PM CDT) CRP 26.8(H) <=10.0 mg/L Blood 06/01/2024 2:09 PM CDT 06/01/2024 2:18 PM CDT us Germania Solorzano NP LAB BLOOD ORDERABLES Fi nal Result Performing Organization Address City/[facility] Co de Phone Number [facility] [address] [address] [facility] [place] [address] * (ABNORMAL) Hemoglobin A1c (06/01/2024 2:09 PM CDT) Hgb A1C 6.0(H) 4.0 - 5.6 % Estimated Average Glucose 126 mg/dL CHEMA VIVEROS Comment: The ADA recommends reporting an estimated Average Glucose (eAG) with all Hemoglobin A1c results using the equation derived from a study of 507 normal and diabetic adults. Minority populations were underrepresented and children were not included. (Diabetes Care 31:0853-1033, 2008). The eAG is not equivalent to a fasting glucose. Blood 06/01/2024 2:09 PM CDT 06/01/2024 2:18 PM CDT Germania Solorzano NP LAB BLOOD ORDERABLES nal Result [facility] [address] [facility]. Department [place] [place] [address] * XR Sacroiliac Joints Less than 3 Views (06/01/2024 1:43 PM CDT) Anatomical Region Laterality Modality Pelvis, Body N/A Computed Radiogr aphy 06/01/2024 2:07 PM CDT Impressions 06/01/2024 2:07 PM CDT Normal radiographs of the sacroiliac joints. Electronically signed by: Todd Iqbal M.D. Narrative 06/01/2024 2:07 PM CDT XR SACROILIAC JOINTS LESS THAN 3 VIEWS HISTORY: Sacroiliac pain. FINDINGS: 3 views of the sacroiliac joints are obtained and interpreted without comparison. There is no fracture. The joint spaces are preserved. There are no erosions. Alignment and soft tissues are normal. Procedure Note Todd Iqbal MD - 06/01/2024 XR SACROILIAC JOINTS LESS THAN 3 VIEWS HISTORY: Sacroiliac pain. FINDINGS: 3 views of the sacroiliac joints are obtained and interpreted without comparison. There is no fracture. The joint spaces are preserved. There are no erosions. Alignment and soft tissues are normal. IMPRESSION: Normal radiographs of the sacroiliac joints. Electronically signed by: Todd Iqbal M.D. Germania Solorzano CARBONATION EQUIPMENT TENDER IMG XR PROCEDURES Final Result from Last 3 Months Insurance [facility] Care Teams Chart Collector Relationship Specialty Start Date End Date Sarina GeigerDO PCP - General Family Medicine 10/23/22 Emerson Martinez MD [address] [place] [address] Consulting Physician Obstetrics and Gynecology 10/23/22
--- OUTSIDE RECORDS SUMMARY | 2024-09-01 07:44 | XMS_ITS | Referral Summary ---
Author Organization [facility] Address [address] [place] [address] Care Team Providers Care Hvac Lead Name Role Phone Sarina Geiger DO Primary Care Provider [phone] Emerson Martinez MD Unavailable [phone] Encounters Date Type Department Care Team Description 06/01/2024 2:15 PM CDT Lab [facility] [address] [place] [address] Elevated C-reactive protein (CRP) 06/01/2024 1:30 PM CDT - 06/01/2024 11:59 PM CDT Hospital Encounter [facility] [id number] [facility] [place] [address] Elevated C-reactive protein (CRP) Discharge Disposition: Discharge to home or self care 06/01/2024 1:00 PM CDT Office Visit [facility] Rheumatology [address] [facility] [address] [place] [id number] Germania Solorzano, JENNYFER Elevated C-reactive protein (CRP) from Last 3 Months Allergies Active Allergy Reactions Criticality Noted Date Comments Azelastine Itching Low 12/09/2023 Eyes became itchy and red. Also had GI issues. Olopatadine Itching Low 12/09/2023 Eyes became red and itchy. Also had GI issues. Medications EluRyng 0.12-0.015 mg/24 hr vaginal ring INSERT 1 RING VAGINALLY EVERY 21 DAYS TO SKIP CYCLES 08/10/202 4 Active mometasone (NASONEX) 50 mcg/actuation nasal [...] Date Resolved Date Polycystic ovary syndrome 06/01/2024 Immunizations Immunization Administration Dates Next Due Pneumococcal Polysaccharide PPV23 12/30/2023 Social History Tobacco Use Types Packs/Day Years [...] on file Sexual Orientation Not on file Last Filed Vital Signs Vital Sign Reading Time Taken Comments Blood Pressure 122/85 06/01/2024 12:58 PM CDT Pulse 100 06/01/2024 12:58 PM CDT Temperature 36.9 C (98.5 F) 06/01/2024 12:58 PM CDT Respiratory Rate 18 02/09/2024 11:4 2 AM REHAB NURSE Oxygen Saturation 98% 06/01/2024 12: 58 PM CDT Inhaled Oxygen Concentration - - Weight 107.9 kg (237 lb 12.8 oz) 2024 12:58 PM CDT Height 157.5 cm (5' 2) 06/01/2024 12:5 8 PM CDT Body Mass Index 43.49 06/01/2024 12:58 PM CDT Plan of Treatment Not on file Procedures Procedure Name Priority Date/Time Associated Diagnosis [...] Senior staff review (06/01/2024 2:09 PM CDT) Senior Staff Review Specimen Blood Comment:Testing performed by : [facility], [address] [place] [address]., [id number] Senior Staff Review Review Done CHEMA VIVEROS Comment: Reviewed by senior staff.06/02/2024 10:33:16 CDT by [facility] Testing performed by: [facility], [address] [place] [address]., [id number] Blood 06/01/2024 2:09 PM CDT 06/01/2024 6:49 PM CDT us Rhonda Welsh MD LAB BLOOD ORDERABLES Edite d Result - Final CHEMA VIVEROS [address] [facility]. Department [place] [address] * (ABNORMAL) CBC with auto differential (06/01/2024 2:09 PM CDT) [facility] WBC 11.9(H) 3.8 - 9.9 K/cumm Hgb 13.4 11.9 - 15.5 g/dL [facility] Hct 39.9 35.6 - 45.5 % [facility] Plt 366 150 - 400 K/cumm [facility] MPV 11.2 9.1 - 12.3 fL [facility] RBC 4.66 3.90 - 5.20 M/cumm [facility] MCV 85.6 81.3 - 96.4 fL [facility] MCH 28.8 27.1 - 33.3 pg [facility] MCHC 33.6 32.3 - 35.7 g/dL [facility] RDW CV 13.2 11.1 - 14.9 % [facility] RDW SD 40.8 35.7 - 48.1 fL [facility] NRBC abs 0.00 0.00 - 0.01 K/cumm [facility] Blood 06/01/2024 2:09 PM CDT 06/01/2024 2:18 PM CDT Germania Solorzano NP LAB BLOOD ORDERABLES nal Result [facility] [address] [facility] Department [place] [address] * (ABNORMAL) Manual Differential (06/01/2024 2:09 PM CDT) [facility] Neutrophil abs 4.4 1.5 - 6.5 K/cumm Comment:Testing performed by : [facility], [address] [place]., [address] Lymphocyte abs 7.1(H) 0.8 - 3.3 K/cumm [facility] Comment:Testing performed by : [facility], [address] [place]., [address] Monocyte abs 0.1(L) 0.2 - 0.8 K/cumm [facility] Comment:Testing performed by : [facility], [address] [place]., [address] Eosinophil abs 0.2 0.0 - 0.5 K/cumm [facility] Comment:Testing performed by : [facility], [address] [place]., [address] Basophil abs 0.1 0.0 - 0.1 K/cumm [facility] Comment:Testing performed by : [facility], [address] [place]., [address] Neutrophil pct 36.8 % [facility]ERNE R [facility] Comment: Interpretive Data Percent cell count reference ranges are not reported, since discordance with absolute values may lead to misinterpretation of CBC data. Current Interpretive Data was last revised on 2017. Testing performed by: [facility], [address] [place] [address]., [address] Lymphocyte pct 50.9 % [facility] R [facility] Comment: Interpretive Data Percent cell count reference ranges are not reported, since discordance with absolute values may lead to misinterpretation of CBC data. Current Interpretive Data was last revised on 2017. Testing performed by: [facility], [address] [place]., [address] Monocyte pct 0.9 % [facility] Comment: Interpretive Data Percent cell count reference ranges are not reported, since discordance with absolute values may lead to misinterpretation of CBC data. Current Interpretive Data was last revised on 2017. Testing performed by: [facility], [address] [place]., [address] Eosinophil pct 1.8 % [facility] R [facility] Comment: Interpretive Data Percent cell count reference ranges are not reported, since discordance with absolute values may lead to misinterpretation of CBC data. Current Interpretive Data was last revised on 2017. Testing performed by: [facility], [address] [place]., [address] Basophil pct 0.9 % [facility] Comment: Interpretive Data Percent cell count reference ranges are not reported, since discordance with absolute values may lead to misinterpretation of CBC data. Current Interpretive Data was last revised on 2017. Testing performed by: [facility], [address] [place]., [address] Variant lymph pct 8.8(H) 0.0 - 0.0 % CHEMA VIVEROS Comment:Testing performed by : [facility], [address] [place]., [address] RBC morphology Consistent with RBC Indicies CHEMA VIVEROS Comment:Testing performed by : [facility], [address] [place]., [address] Platelet estimate Adequate CE LUANN VIVEROS Comment:Testing performed by : [facility], [address] [place]., [address] Blood 06/01/2024 2:09 PM CDT 06/01/2024 6:49 PM CDT Germania Solorzano MUD CLEANER OPERATOR LAB BLOOD ORDERABLES Fi nal Result [facility] [address] [employer] [place] [address] * (ABNORMAL) Erythrocyte sedimentation rate (06/01/2024 2:09 PM CDT) Pathologist [facility] Erythrocyte sedimentation rate 31(H) 1 - 20 mm/hr Blood 06/01/2024 2:09 PM CDT 06/01/2024 2:18 PM CDT Germania Solorzano MUD CLEANER OPERATOR LAB BLOOD ORDERABLES Fi nal Result [facility] [address] [place] [place] [address] * (ABNORMAL) CRP (acute phase) (06/01/2024 2:09 PM CDT) CRP 26.8(H) <=10.0 mg/L Blood 06/01/2024 2:09 PM CDT 06/01/2024 2:18 PM CDT Germania Solorzano MUD CLEANER OPERATOR LAB BLOOD ORDERABLES nal Result Performing Organization Address [facility] Phone Number [facility]MA [facility] [address] [facility] [place] [address] * (ABNORMAL) Hemoglobin A1c (06/01/2024 2:09 PM CDT) Hgb A1C 6.0(H) 4.0 - 5.6 % Estimated Average Glucose 126 mg/dL CHEMA VIVEROS Comment: The ADA recommends reporting an estimated Average Glucose (eAG) with all Hemoglobin A1c results using the equation derived from a study of 507 normal and diabetic adults. Minority populations were underrepresented and children were not included. (Diabetes Care 31:2372-0412, 2008). The eAG is not equivalent to a fasting glucose. Blood 06/01/2024 2:09 PM CDT 06/01/2024 2:18 PM CDT Germania Solorzano NP LAB BLOOD ORDERABLES nal Result Performing Organization Address [facility] Phone Number [facility] [address] [facility] [place] [address] * XR Sacroiliac Joints Less than 3 [...] signed by: Todd Iqbal M.D. Germania Solorzano MUD CLEANER OPERATOR IMG XR PROCEDURES Final Result from Last 3 Months Insurance [facility] Care Teams Hvac Lead Relationship Specialty Start Date End Date Sarina Geiger DO PCP - General Family Medicine 10/23/22 Emerson Martinez MD [address] [facility] [address] [place] [address] Consulting Physician Obstetrics and Gynecology 10/23/22
--- NOTE | 2024-09-21 16:38 | P.SLEEP_ITS ---
Sleep Study - Home Unattended Date of Study: 09/01/24 Ordering Provider: Sarina Geiger DO Interpreting Provider: Lorene Riddle DO Home Sleep Study Type: Watch PAT Height: 1.57 m Weight: 104.326 kg Body Mass Index: 42.0 Neck Circumference (inches): 15 [place]: 15 Reason for Sleep Study Excessive daytime sleepiness Sleep History The patient is a 24-year-old female that had a sleep study ordered by [facility] for evaluation of sleep apnea. The patient admits to difficulty falling asleep, excessive daytime sleepiness, and trouble maintaining sleep. She does snore loudly. She denies having interruptions in breathing while asleep. She denies choking or gasping at night. She denies having trouble breathing on her back. She does have morning headaches. She does have a dry or sore mouth/throat in the morning. She denies nocturnal heartburn. She denies nocturia. She denies having difficulty returning to sleep if she wakes up throughout the night. She denies any hypnotic or sedative use. She does feel anxious about sleep. She does feel tired or sleepy during the day. She does feel tired in the morning. She does have the urge to fall asleep during the day. She denies feeling drowsy while driving. She denies sleep paralysis, cataplexy, and hypnagogic/hypnopompic hallucinations. She does clench or grind her teeth. She does kick or jerk her legs excessively. She does have a restless feeling in her legs that causes an urge to move her legs. The restless feeling gets worse with rest and better with activity. The restless feeling is worse in the evening or at night and it does cause her distress. She goes to bed at 4 a.m. every day. It takes her 1 hour to fall asleep. She gets 6 hours of sleep per night. Her sleep is a little more restorative on her days off. She denies taking any planned naps. She denies dream enactment behavior. She denies sleepwalking. She consumes 1 to 2 cups of a caffeinated beverage per day. She denies tobacco and alcohol use. She denies exercising on a regular basis. [facility] Past Medical History Medical History Constipation Upper abdominal pain Hepatic steatosis Obese Nausea and vomiting Right upper quadrant pain History of PCOS Depression Anxiety PCOS (polycystic ovarian syndrome) Surgical History Surgical History H/O adenoidectomy History of tonsillectomy Hx laparoscopic cholecystectomy 01/21/22 Family History Family History Mother Breast cancer Other Ovarian cancer Social History Social History Smoking status: Current every day smoker Tobacco type: e-cigarettes/vaping Alcohol intake: never Substance use: never Substance use type: does not use Do You Feel Safe in your Home?: Yes Lack of Transportation: No Lack of Food: Never True Current Housing: I Have Housing Concerned About Future Housing: No Difficulty Paying Gas/Electric Bills: No Difficulty Paying for Meds: No Currently Unemployed: YES Education: High School Diploma/GED Difficulty w/ Childcare or Family Care: No Living arrangements: with family Additional living arrangements comments: WITH BOYFRIEND Occupation/Education: occupation Gender identity (if verbalized by the patient): Female Sexual Orientation (if Verbalized by the Patient): Straight or Heterosexual Spiritual care concerns: No Medications Home Medications ?Medication ?Instructions ?Recorded ?Confirmed ?Type etonogestrel 0.12 mg-ethinyl 1 vag ring vaginal .see comment 01/21/24 07/12/24 Rx estradiol 0.015 mg/24 hr vaginal #12 ea ring (NuvaRing) Sleep Procedure The sleep study was completed using Atterocor a technically adequate device with seven channels: peripheral arterial tone, actigraphy, body position, snore, respiratory movement, pulse oximetry, sleep staging, and heart rate. Prior to using the device, the patient received verbal and written instructions for its application and was provided with the help desk phone number for additional telephonic instruction with 24-hour availability of qualified personnel to answer questions. The study was scored using CMS guidelines. Sleep Architecture The total recording time is 7 hrs, 54 min. The total sleep time is 7 hrs, 4 min. Sleep latency is 26 minutes. REM latency is 60 minutes. The patient had 5 episodes of waking. Sleep architecture shows 19.6% deep sleep, 67.1% light sleep, and (as % Total Sleep Time) showed NREM (Light 67.1%; Deep 19.6%), and a 13.3% stage REM. The patient spent 53.4% of total sleep time in the supine position. Sleep efficiency was 89.45. Respiratory Analysis The overall AHI (pAHI 4%:) is 0.1. The overall AHI (pAHI 3%:) is 1.0. The central AHI is 0.0. The AHI was 1.0 in NREM and 1.1 in REM sleep. The AHI was 1.3 in Supine and 0.6 in Non-supine sleep. Percent of Len Holman respirations is 0.0. Oximetry Data The oxygen desaturation index (HARSHIL 4%:) is 0.3. The mean saturation is 96%, and the lowest saturation is 90%. Time spent with saturation < 88% is 0.0 minutes. Snoring Profile Snoring average intensity is 40 dB. The patient snored above 45 decibels for 10.7 minutes, 2.5% of sleep time. Cardiac Profile The average pulse rate is 77 beats per minutes. The lowest pulse rate is 51 bpm. The highest pulse rate reported is 121 bpm. Atrial fibrillation was not detected. Premature beats occur 0.1 per minute. Assessment and Plan Assessment and Plan (1) Excessive daytime sleepiness: Code(s): G47.19 - Other hypersomnia Status: Acute Assessment and Plan: The patient had an overall AHI of 0.1 with desaturation down to 90%. This is not consistent with sleep-disordered breathing. Due to the severity of her daytime hypersomnia, further evaluation is warranted. I recommend that she have a polysomnogram followed by [facility] for evaluation of excessive daytime sleepiness. The patient's sleep history is highly suggestive of Restless Leg Syndrome. I recommend that the patient have a serum ferritin drawn for evaluation of iron deficiency anemia. If the patient has a serum ferritin less than 75 ng/mL, I recommend starting a daily iron supplement and a Vitamin C supplement for better absorption. If the serum ferritin is greater than 75 ng/mL, I recommend starting a dopamine agonist and titrating the dose until symptoms resolve. There are nonpharmacological methods to treat limb movements including daily exercise, stretching calf muscles before bed, avoiding excessive amounts of caffeine and alcohol, vitamin B supplementation, magnesium lotion massaged into legs before bed, and use of a weighted blanket. Data The data obtained during this sleep study is adequate for interpretation. Certification This sleep study has been reviewed by a board certified sleep medicine physician.
[2024-09-21 16:39] VITALS: BMI 42.0
== END 2024-09-08 13:23 | disposition home or self-care (01) ==
LOC: ANHCSM 07:42
PROVIDERS: PCP Family Medicine; Visit Provider Family Medicine
DX: G47.19 Other hypersomnia (principal); G47.30 Sleep apnea, unspecified
CPT/HCPCS: 95800